=== PATIENT | male | born 1945 | race Caucasian/White ===

== ENCOUNTER 2018-02-14 10:26 | Observation (INO) ==
--- NOTE | 2018-02-14 10:29 | Emergency Department Note ---
Disposition Clinical Impression: COPD exacerbation Disposition: Admitted As Inpatient Condition: Good Referrals: Clovis Manley, OTOLOGIST [Primary Care Provider] - Time of Disposition: 13:06 SOB HPI - General Stated Complaint: difficulty breathing Time Seen by Provider: 02/14/18 10:29 Source: patient, EMS Mode of arrival: EMS Limitations: no limitations Nursing Notes Reviewed: Yes Vital Signs Reviewed: Yes - History of Present Illness 72-year-old white male presents emergency department via ambulance after being short of breath at home. He says that his breathing has become increasingly difficult over the last several days. He says that this morning he just could not take it. He says that his symptoms are made worse when he walks across the [place]. He also has had a productive cough. He says that he has had COPD in the past for a long time and he has also had congestive heart failure. He denies any fever or chills. He has had a continuous nebulizer treatment but continues from the ambulance. He says that this has seemed to help his breathing. He does not seem to be in any apparent distress presently, but he is short of breath. - Related Data Home Medications Medication Instructions Recorded Confirmed Allopurinol [Zyloprim] 100 mg PO BID 01/28/15 02/14/18 Amlodipine [Norvasc] 5 mg PO DAILY 01/28/15 02/14/18 CloNIDine HCl 0.1 mg PO BID 01/28/15 02/14/18 Gabapentin [Neurontin] 100 mg PO BID 01/28/15 02/14/18 Metformin [Glucophage] 500 mg PO BID 01/28/15 02/14/18 Metoprolol [Lopressor] 1 tab PO BID 01/28/15 02/14/18 Omeprazole [PriLOSEC] 20 mg PO BID 01/28/15 02/14/18 Albuterol Neb [Proventil Neb] 2.5 mg IH PRN PRN 04/27/15 02/14/18 Aspirin [Adult Low Dose Aspirin EC] 1 tab PO DAILY 04/27/15 02/14/18 Atorvastatin [Lipitor] 40 mg PO HS 10/14/15 02/14/18 Chlorthalidone 25 mg PO DAILY 10/14/15 02/14/18 Insulin DETEMIR [Levemir] 30 unit SQ HS 10/14/15 02/14/18 rOPINIRole [Requip] 1 mg PO HS 10/14/15 02/14/18 Linagliptin [Tradjenta] 5 mg PO DAILY 08/13/16 02/14/18 Rivaroxaban [Xarelto] 10 mg PO DAILY 08/13/16 02/14/18 Salmeterol Xinafoate [Serevent 50 mcg IH BID 08/13/16 02/14/18 Diskus] Lisinopril [Zestril] 5 mg PO DAILY 02/14/18 02/14/18 Allergies Allergy/AdvReac Type Severity Reaction Status Date / Time azithromycin Allergy Hives Verified 05/23/15 20:02 All systems ED: reviewed and negative except as stated. Constitutional: Denies: fever, chills, weakness, weight change Eyes: Denies: eye pain, eye discharge, vision change ENT ED: Denies: ear pain, throat pain, dental pain, hearing loss, epistaxis, congestion, dysphagia Cardiovascular: Reports: dyspnea on exertion. Denies: chest pain, palpitations, edema, syncope Respiratory: Reports: as per HPI, cough, dyspnea, wheezes, sputum production. Denies: hemoptysis Gastrointestinal: Denies: abdominal pain, nausea, vomiting, diarrhea, constipation, hematemesis, melena, hematochezia Genitourinary: Denies: urgency, dysuria, frequency, hematuria Musculoskeletal: Denies: back pain, neck pain, arthralgia, myalgia Integumentary: Denies: rash, abrasion, lesions Neurological: Denies: headache, weakness, numbness, paresthesias, confusion, abnormal gait, vertigo Psychiatric: Denies: anxiety, depression, suicidal thoughts, homicidal thoughts, auditory hallucinations, visual hallucinations Endocrine: Denies: fatigue Hematological/Lymphatic: Denies: easy bleeding, easy bruising Allergic/Immunologic: Denies: facial swelling, urticaria Past Medical History - Past Medical History Medical history: Reports: arthritis, atrial fibrillation, COPD, coronary artery disease, diabetes, GERD, hyperlipidemia, hypertension, myocardial infarction Surgical history: Reports: angioplasty/stent, appendectomy, cataract, herniorrhaphy Psychiatric history: Reports: no psych history - Social History Smoking Status: Former smoker Smokeless Tobacco Status: No Alcohol use: Reports: rarely Drug use: Reports: none Physical Exam - General Limitations: no limitations General appearance: alert, in no apparent distress - Head Head exam: atraumatic, normocephalic, normal inspection - Eye Eye exam: Present: normal appearance, PERRL, EOMI - ENT ENT exam: normal exam, normal oropharynx, mucous membranes moist - Neck Neck exam: Present: normal inspection, full ROM, trachea midline. Absent: tenderness, lymphadenopathy - Chest Chest inspection: Present: normal inspection, symmetric chest wall rise. Absent: tenderness - Respiratory Respiratory exam: Present: wheezes, accessory muscle use, other (Breath sounds are significantly decreased bilaterally, but equal. Scattered rhonchi through out, more prominent in the left lung base, mild expiratory wheezing. No Rales) - Cardiovascular Cardiovascular exam: Present: regular rate, normal rhythm, normal heart sounds - Abdominal Exam Abdominal exam: Present: soft, Non-Tender. Absent: tenderness, distention, guarding, rebound, rigidity, organomegaly, mass, pulsatile mass - Extremities Exam Extremities exam: Present: normal inspection, full ROM. Absent: tenderness, pedal edema - Back Exam Back exam: Present: normal inspection, full ROM. Absent: tenderness, CVA tenderness (R), CVA tenderness (L) - Neurological Exam Neurological exam: Present: alert, oriented X3, CN II-XII intact. Absent: motor sensory deficit - Psychiatric Psychiatric exam: Present: normal affect, normal mood - Skin Skin exam: Present: warm, dry, intact, normal color Course Course Narrative: The patient remained stable throughout his emergency department stay. Following his medications and breathing treatment had significant relief of his shortness of breath. He is feeling better at the time of disposition. Spoke with Dr. Miranda who is the hospitalist today at 1300 and the patient will be observed overnight in the hospital. Vital Signs Temperature 97.6 F 02/14/18 10:32 Pulse Rate 70 02/14/18 10:32 Respiratory Rate 20 02/14/18 10:32 Blood Pressure 133/70 02/14/18 10:32 O2 Sat by Pulse Oximetry 98 02/14/18 10:32 Temperature 97.6 F 02/14/18 10:32 Pulse Rate 66 02/14/18 12:47 Respiratory Rate 18 02/14/18 12:47 Blood Pressure 122/78 02/14/18 12:47 O2 Sat by Pulse Oximetry 94 02/14/18 12:47 Oxygen Delivery Oxygen Delivery Nasal Cannula Shortness of Breath/Dyspnea - Lab Data Lab results reviewed: Yes I reviewed the patient's lab results. Result diagrams: 02/14/18 11:05 02/14/18 11:05 Lab Results 02/14/18 02/14/18 02/14/18 Range/Units 11:05 11:05 11:05 WBC 11.0 (4.3-11.1) K/mcL RBC 4.90 (4.19-5.50) M/mcL Hgb 15.3 (12.9-16.9) g/dL Hct 47.8 (37.5-50.1) % MCV 97.6 (83.0-100.0) fL MCH 31.2 (28.0-33.3) pg MCHC 32.0 (31.6-35.5) g/dL RDW 16.0 H (11.5-14.5) % Plt Count 156 (140-400) K/mcL MPV 11.7 (9.4-12.4) fL Immature Gran % 0.7 (0-4) % Seg Neutrophils % 73.4 % Lymphocytes % 12.3 % Monocytes % 7.8 % Eosinophils % 5.1 % Basophils % 0.7 % Neutrophils # 8.0 (1.6-8.9) K/mcL Lymphocytes # 1.4 (0.6-4.6) K/mcL Monocytes # 0.9 (0.0-1.3) K/mcL Eosinophils # 0.6 (0.0-0.6) K/mcL Basophils # 0.1 (0.0-0.2) K/mcL PT 18.8 H (9.4-12.1) Seconds INR 1.7 ABG pH (7.32-7.45) pH Units ABG pCO2 (35-45) mmHg ABG pO2 (85-104) mmHg ABG HCO3 (21-27) mEq/L ABG Total CO2 (20-26) mEq/L ABG O2 Saturation (95-98) % ABG Base Excess (-2 to 3) mEq/L Sodium 135 L (136-145) mEq/L Potassium 4.7 (3.5-5.1) mEq/L Chloride 103 (98-107) mEq/L Carbon Dioxide 25 (23-29) mEq/L BUN 16 (8-23) mg/dL Creatinine 0.78 (0.70-1.30) mg/dL Est GFR ( Amer) > 60 (> 60) Est GFR (Non-Af Amer) > 60 (> 60) BUN/Creatinine Ratio 21 (6-26) Glucose 134 H (70-105) mg/dL Calculated Osmolality 283 (280-300) Lactic Acid (0.5-2.2) mmol/L Calcium 9.3 (8.6-10.3) mg/dL Total Bilirubin 0.9 (0.3-1.0) mg/dL AST 51 H (13-39) Units/L ALT 52 (7-52) Units/L Alkaline Phosphatase 106 H (34-104) Units/L Troponin I < 0.03 (< 0.04) ng/mL B-Natriuretic Peptide (Less than 100) pg/mL Serum Total Protein 7.0 (6.4-8.9) g/dL Albumin 4.1 (3.5-5.7) g/dL Globulin 2.9 (2.4-3.5) g/dL Albumin/Globulin Ratio 1.4 (1.1-2.2) 02/14/18 02/14/18 02/14/18 Range/Units 11:05 11:05 11:16 WBC (4.3-11.1) K/mcL RBC (4.19-5.50) M/mcL Hgb (12.9-16.9) g/dL Hct (37.5-50.1) % MCV (83.0-100.0) fL MCH (28.0-33.3) pg MCHC (31.6-35.5) g/dL RDW (11.5-14.5) % Plt Count (140-400) K/mcL MPV (9.4-12.4) fL Immature Gran % (0-4) % Seg Neutrophils % % Lymphocytes % % Monocytes % % Eosinophils % % Basophils % % Neutrophils # (1.6-8.9) K/mcL Lymphocytes # (0.6-4.6) K/mcL Monocytes # (0.0-1.3) K/mcL Eosinophils # (0.0-0.6) K/mcL Basophils # (0.0-0.2) K/mcL PT (9.4-12.1) Seconds INR ABG pH 7.37 (7.32-7.45) pH Units ABG pCO2 41 (35-45) mmHg ABG pO2 72 L (85-104) mmHg ABG HCO3 24 (21-27) mEq/L ABG Total CO2 25 (20-26) mEq/L ABG O2 Saturation 94 L (95-98) % ABG Base Excess -2 (-2 to 3) mEq/L Sodium (136-145) mEq/L Potassium (3.5-5.1) mEq/L Chloride (98-107) mEq/L Carbon Dioxide (23-29) mEq/L BUN (8-23) mg/dL Creatinine (0.70-1.30) mg/dL Est GFR ( Amer) (> 60) Est GFR (Non-Af Amer) (> 60) BUN/Creatinine Ratio (6-26) Glucose (70-105) mg/dL Calculated Osmolality (280-300) Lactic Acid 2.0 (0.5-2.2) mmol/L Calcium (8.6-10.3) mg/dL Total Bilirubin (0.3-1.0) mg/dL AST (13-39) Units/L ALT (7-52) Units/L Alkaline Phosphatase (34-104) Units/L Troponin I (< 0.04) ng/mL B-Natriuretic Peptide 234 H (Less than 100) pg/mL Serum Total Protein (6.4-8.9) g/dL Albumin (3.5-5.7) g/dL Globulin (2.4-3.5) g/dL Albumin/Globulin Ratio (1.1-2.2) - Radiology Data Radiology results reviewed: Yes I reviewed the patient's radiology results. One view chest: IMPRESSION: Stable chest demonstrating what appears to be chronic interstitial fibrotic changes. No acute abnormalities identified. D/ / Jose Mcnamara MD / Jose Mcnamara MD - EKG Data EKG attestation: Yes I reviewed and interpreted this EKG. EKG results narrative: Twelve-lead EKG showed a sinus rhythm, normal axis, rate 68, no acute ST elevation or depression appreciated.
[2018-02-14] MEDS ORDERED: methylPREDNISolone 125 MG/2 ML VIAL IVP ONE (10:37)
[2018-02-14] MEDS ORDERED: Furosemide 40 MG/4 ML VIAL IVP ONE (10:38)
[2018-02-14 11:12] LABS: Basophils # 0.1 K/mcL (0.0-0.2); Basophils % 0.7 %; Eosinophils # 0.6 K/mcL (0.0-0.6); Eosinophils % 5.1 %; Hematocrit 47.8 % (37.5-50.1); Hemoglobin 15.3 g/dL (12.9-16.9); Immature Granulocytes % 0.7 % (0-4); Lymphocytes # 1.4 K/mcL (0.6-4.6); Lymphocytes % 12.3 %; Mean Corpuscular Hemoglobin 31.2 pg (28.0-33.3); Mean Corpuscular Volume 97.6 fL (83.0-100.0); Mean Platelet Volume 11.7 fL (9.4-12.4); Monocytes # 0.9 K/mcL (0.0-1.3); Monocytes % 7.8 %; Platelet Count 156 K/mcL (140-400); Segmented Neutrophils % 73.4 %
[2018-02-14 11:14] LABS: INR 1.7; Prothrombin Time 18.8 Seconds (9.4-12.1)
[2018-02-14 11:17] LABS: ABG Base Excess -2 mEq/L (-2 to 3); ABG HCO3 24 mEq/L (21-27); ABG Oxygen Saturation 94 % (95-98); ABG PCO2 41 mmHg (35-45); ABG PH 7.37 pH Units (7.32-7.45); ABG PO2 72 mmHg (85-104); ABG TCO2 25 mEq/L (20-26)
[2018-02-14 11:27] LABS: Alanine Aminotransferase 52 Units/L (7-52); Albumin 4.1 g/dL (3.5-5.7); Albumin/Globulin Ratio 1.4 (1.1-2.2); Alkaline Phosphatase 106 Units/L (34-104); Aspartate Amino Transferase 51 Units/L (13-39); BUN/Creatinine Ratio 21 (6-26); Bilirubin,Total 0.9 mg/dL (0.3-1.0); Blood Urea Nitrogen 16 mg/dL (8-23); Calcium 9.3 mg/dL (8.6-10.3); Carbon Dioxide 25 mEq/L (23-29); Chloride 103 mEq/L (98-107); Globulin 2.9 g/dL (2.4-3.5); Glucose 134 mg/dL (70-105); Osmolality,Calculated 283 (280-300); Potassium 4.7 mEq/L (3.5-5.1); Sodium 135 mEq/L (136-145); Troponin I < 0.03 ng/mL (< 0.04); eGFR For Non-African Americans > 60 (> 60)
[2018-02-14] MEDS ORDERED: Acetaminophen 325 MG TABLET PO PRN (13:50)
[2018-02-14] MEDS ORDERED: Naloxone 0.4 MG/ML INJ IVP PRN (13:50)
[2018-02-14] MEDS ORDERED: Ibuprofen 400 MG TABLET PO PRN (13:50)
[2018-02-14] MEDS ORDERED: Ipratropium/Albuterol Neb 3 ML IH PRN (15:02)
[2018-02-14] MEDS ORDERED: Dextrose Gel 15 GM/37.5 ML TUBE PO PRN ×2 (15:03)
[2018-02-14] MEDS ORDERED: D5% in Water 1,000 ML IVC PRN (15:03)
[2018-02-14] MEDS ORDERED: *HR* Dextrose 50 % in Water (Syg) 50 ML SYRINGE IVP PRN (15:03)
[2018-02-14] MEDS: MethylPREDNISolone 40 MG/ML VIAL IVP SCH ×2 (17:09→23:34)
[2018-02-14] MEDS: Ipratropium/Albuterol Neb 3 ML IH SCH ×2 (17:11→21:57)
[2018-02-14] MEDS: Insulin LISPRO 300 UNITS/3 ML VIAL SQ SCH ×2 (17:11→21:55)
--- NOTE | 2018-02-14 18:18 | Internal Med History&Physical ---
Date of Encounter: 02/14/18 Time of Encounter: 17:30 Internal Medicine - H&P: HPI Chief complaint: sob Admitted From: Home History of present illness: Mr. Feliz is a 72 year old male who came to emergency department via ambulance from home after being more short of breath . He also had a dry cough for 3 days and increased sob with exertion. Denies chills or chest pain. He lives he says with son in law but has his own area. He says he has a small dog he loves. He is 13 yrs. He says his kids want him to live with them but he does not want to do so. He likes independence. He is on chronic 2 L [place] oxygen. He has hx of COPD for many years and hx of congestive heart failure. He responded well in ED to continuous nebulizer treatment and his hypoxia improved. He went to 94 % on 2 L NC. He has hx a fib but is currently in SR Assessment and Plans acute exacerbation of COPD will use NC oxygen 2 L will use duonebs Q 6 H and q 4 hr prn will use rocephin and zithoromax will check sputum culture and gram stain steroids Type 2 diabetes will monitor glucose cover with slide scale as needed continue tradjenta and metformin and long acting insulin as at home hx a fib will continue his home dose xarelto - Related Data Home Medications Medication Instructions Recorded Confirmed Allopurinol [Zyloprim] 100 mg PO BID 01/28/15 02/14/18 Amlodipine [Norvasc] 5 mg PO DAILY 01/28/15 02/14/18 CloNIDine HCl 0.1 mg PO BID 01/28/15 02/14/18 Gabapentin [Neurontin] 100 mg PO BID 01/28/15 02/14/18 Metformin [Glucophage] 500 mg PO BID 01/28/15 02/14/18 Metoprolol [Lopressor] 1 tab PO BID 01/28/15 02/14/18 Omeprazole [PriLOSEC] 20 mg PO BID 01/28/15 02/14/18 Albuterol Neb [Proventil Neb] 2.5 mg IH PRN PRN 04/27/15 02/14/18 Aspirin [Adult Low Dose Aspirin EC] 1 tab PO DAILY 04/27/15 02/14/18 Atorvastatin [Lipitor] 40 mg PO HS 10/14/15 02/14/18 Chlorthalidone 25 mg PO DAILY 10/14/15 02/14/18 Insulin DETEMIR [Levemir] 30 unit SQ HS 10/14/15 02/14/18 rOPINIRole [Requip] 1 mg PO HS 10/14/15 02/14/18 Linagliptin [Tradjenta] 5 mg PO DAILY 08/13/16 02/14/18 Rivaroxaban [Xarelto] 10 mg PO DAILY 08/13/16 02/14/18 Salmeterol Xinafoate [Serevent 50 mcg IH BID 08/13/16 02/14/18 Diskus] Lisinopril [Zestril] 5 mg PO DAILY 02/14/18 02/14/18 Allergies Allergy/AdvReac Type Severity Reaction Status Date / Time azithromycin Allergy Hives Verified 05/23/15 20:02 All systems reviewed and negative except as stated. Past Medical History - Past Medical History Medical history: Reports: arthritis, atrial fibrillation, COPD, coronary artery disease, diabetes, GERD, hyperlipidemia, hypertension, myocardial infarction Surgical history: Reports: angioplasty/stent, appendectomy, cataract, herniorrhaphy Psychiatric history: Reports: no psych history - Social History Smoking Status: Former smoker not smoker now Smokeless Tobacco Status: No Alcohol use: Reports: rarely Drug use: Reports: none Physical Exam - General General appearance: alert elderly WM in no apparent distress - Eye Eye exam: PERRL, EOMI - ENT ENT exam: normal oropharynx, mucous membranes moist - Neck Neck exam: Present: normal inspection, full ROM, trachea midline. Absent: tenderness, lymphadenopathy - Respiratory Respiratory exam: Present: wheezes, accessory muscle use, Scattered rhonchi . No Rales) - Cardiovascular Cardiovascular exam: Present: regular rate, normal rhythm, normal heart sounds - Abdominal Exam Abdominal exam: Present: soft, Non-Tender. Absent: tenderness, distention, guarding, rebound, rigidity, organomegaly, mass, pulsatile mass - Extremities Exam Extremities exam: Present: normal inspection, no significant pedal edema - Neurological Exam Neurological exam: Present: alert, oriented X3, CN II-XII intact. - Skin Skin exam: Present: warm, thin and dry, intact, normal color Past Med Surg Social Fam HX - Past Medical History Medical history: arthritis, atrial fibrillation, COPD, coronary artery disease, diabetes, GERD, hyperlipidemia, hypertension, myocardial infarction Additional medical history: unsure if has aneurysm-they checked it and said it wasn't bad enough to do anything with yet. left pedals pulses weak Psychiatric history: no psych history - Past Surgical History Surgical History: angioplasty/stent, appendectomy, cataract, herniorrhaphy Additional surgical history: hernia repair x 2 - Social History Smoking Status: Former smoker Smokeless Tobacco Status: No Alcohol use: rarely Drug use: none - Family History Father Adopted: No Family Member Ethnicity: Non- Living Status: Hx Family Cardiac Disorders: Yes Hx Family Respiratory Disorders: No Hx Family Cancer: No Hx Family GI Disorders: No Hx Family Endocrine Disorder: Yes Hx Family Neuromuscular Disorders: No Hx Family Neurologic Disorders: No Hx Family HEENT Disorders: No Hx Family Autoimmune Disorders: No Mother Living Status: Hx Family Cancer: Yes Brother Living Status: Hx Family Cardiac Disorders: Yes Internal Medicine - H&P: Meds Allopurinol [Zyloprim] 100 mg PO BID 01/28/15 [History] Amlodipine [Norvasc] 5 mg PO DAILY 01/28/15 [History] CloNIDine HCl 0.1 mg PO BID 01/28/15 [History] Gabapentin [Neurontin] 100 mg PO BID 01/28/15 [History] Metformin [Glucophage] 500 mg PO BID 01/28/15 [History] Metoprolol [Lopressor] 1 tab PO BID 01/28/15 [History] Omeprazole [PriLOSEC] 20 mg PO BID 01/28/15 [History] Albuterol Neb [Proventil Neb] 2.5 mg IH PRN PRN 04/27/15 [History] Aspirin [Adult Low Dose Aspirin EC] 1 tab PO DAILY 04/27/15 [History] Atorvastatin [Lipitor] 40 mg PO HS 10/14/15 [History] Chlorthalidone 25 mg PO DAILY 10/14/15 [History] Insulin DETEMIR [Levemir] 30 unit SQ HS 10/14/15 [History] rOPINIRole [Requip] 1 mg PO HS 10/14/15 [History] Linagliptin [Tradjenta] 5 mg PO DAILY 08/13/16 [History] Rivaroxaban [Xarelto] 10 mg PO DAILY 08/13/16 [History] Salmeterol Xinafoate [Serevent Diskus] 50 mcg IH BID 08/13/16 [History] Lisinopril [Zestril] 5 mg PO DAILY 02/14/18 [History] 3 Allergy/AdvReac Type Severity Reaction Status Date / Time azithromycin Allergy Hives Verified 05/23/15 20:02 All Systems PM: A 10-system review of systems was performed and is negative for pertinent findings except as documented above in the HPI. - Constitutional Vitals: Temp Pulse Resp BP Pulse Ox 97.6 F 87 13 127/66 91 02/14/18 16:46 02/14/18 16:46 02/14/18 16:46 02/14/18 16:46 02/14/18 16:46 Internal Med - H&P Results - Labs CBC & Chem 7: 02/14/18 11:05 02/14/18 11:05 Labs: Short CBC 02/14/18 Range/Units 11:05 WBC 11.0 (4.3-11.1) K/mcL Hgb 15.3 (12.9-16.9) g/dL Hct 47.8 (37.5-50.1) % Plt Count 156 (140-400) K/mcL Neutrophils # 8.0 (1.6-8.9) K/mcL BMP 02/14/18 11:05 Sodium 135 L Potassium 4.7 Chloride 103 Carbon Dioxide 25 BUN 16 Creatinine 0.78 Glucose 134 H Calcium 9.3 Cardiac Enzymes 02/14/18 Range/Units 11:05 Troponin I < 0.03 (< 0.04) ng/mL Liver Function 02/14/18 Range/Units 11:05 Total Bilirubin 0.9 (0.3-1.0) mg/dL AST 51 H (13-39) Units/L ALT 52 (7-52) Units/L Alkaline Phosphatase 106 H (34-104) Units/L Albumin 4.1 (3.5-5.7) g/dL - ABG Interpretation ABG results: 02/14/18 11:16 ABG pH 7.37 ABG pCO2 41 ABG pO2 72 L ABG HCO3 24 ABG Total CO2 25 ABG O2 Saturation 94 L ABG Base Excess -2 - Impressions ITS Impressions Chest X-Ray 02/14/18 10:37 IMPRESSION: Stable chest demonstrating what appears to be chronic interstitial fibrotic changes. No acute abnormalities identified. D/ / Jose Mcnamara MD / Jose Mcnamara MD Interpreting Provider: Jose Mcnamara MD
[2018-02-14] MEDS: *HR* Metformin 500 MG TABLET PO SCH (21:51)
[2018-02-14] MEDS: cloNIDine HCl 0.1 MG TABLET PO SCH (21:51)
[2018-02-14] MEDS: Gabapentin 100 MG CAPSULE PO SCH (21:51)
[2018-02-14] MEDS: rOPINIRole 1 MG TABLET PO SCH (21:51)
[2018-02-14] MEDS: Insulin DETEMIR 100 UNIT/ML X5UNITS SQ SCH (21:56)
[2018-02-14] MEDS: Albuterol 2.5 MG/3 ML NEBULIZER IH SCH (21:57)
[2018-02-15] MEDS: Ipratropium/Albuterol Neb 3 ML IH SCH ×4 (04:07→21:37)
[2018-02-15] MEDS: MethylPREDNISolone 40 MG/ML VIAL IVP SCH ×2 (05:00→12:27)
[2018-02-15] MEDS: *HR* Metformin 500 MG TABLET PO SCH ×2 (08:48→20:03)
[2018-02-15] MEDS: *HR* Rivaroxaban 10 MG TABLET PO SCH (08:48)
[2018-02-15] MEDS: Gabapentin 100 MG CAPSULE PO SCH ×2 (08:48→19:53)
[2018-02-15] MEDS: Aspirin Enteric Coated 81 MG Tablet PO SCH (08:48)
[2018-02-15] MEDS: cloNIDine HCl 0.1 MG TABLET PO SCH ×2 (08:48→19:53)
[2018-02-15] MEDS: amLODIPine 5 MG TABLET PO SCH (08:48)
[2018-02-15] MEDS: (Linagliptin [Tradjenta] 5 MG) PO SCH (08:49)
[2018-02-15] MEDS: Insulin LISPRO 300 UNITS/3 ML VIAL SQ SCH ×4 (08:50→20:04)
[2018-02-15] MEDS: Albuterol 2.5 MG/3 ML NEBULIZER IH SCH ×2 (12:27→21:36)
--- NOTE | 2018-02-15 13:18 | Internal Med Progress Note ---
Date of Encounter: 02/15/18 Time of Encounter: 01:15 - Subjective Interval history: Chief complaint: sob Admitted From: Home Interval history Mr. Feliz is a 72 year old male who came to emergency department via ambulance from home after being more short of breath . He also had a dry cough for 3 days and increased sob with exertion. Denies chills or chest pain. He lives he says with son in law but has his own area. He says he has a small dog he loves. He is 15 yrs. He says his kids want him to live with them but he does not want to do so. He likes independence. He is on chronic 2 L [place] oxygen. He has hx of COPD for many years and hx of congestive heart failure. His xray in ED did not show failure. AT home he is chronic on 2 L NC. He is on IV antibiotics for bronchitis. His flu was neg he states he feels he has more productive cough now. He has hx a fib but is currently in SR no chest pain Assessment and Plans (1) acute exacerbation of COPD continue NC oxygen 2 L will use duonebs Q 6 H and q 4 hr prn continue rocephin and zithoromax will check sputum culture and gram stain steroids - has been on IV will change tomorrow to PO prednisone check chest xray today add tessalon for cough (2) Type 2 diabetes pt is eating well continue monitor glucose cover with slide scale as needed continue tradjenta and metformin and long acting insulin as at home (3) hx a fib will continue his home dose xarelto ok to dc telemetry as he has been in stable sr check labs - Related Data Home Medications Medication Instructions Recorded Confirmed Allopurinol [Zyloprim] 100 mg PO BID 01/28/15 02/14/18 Amlodipine [Norvasc] 5 mg PO DAILY 01/28/15 02/14/18 CloNIDine HCl 0.1 mg PO BID 01/28/15 02/14/18 Gabapentin [Neurontin] 100 mg PO BID 01/28/15 02/14/18 Metformin [Glucophage] 500 mg PO BID 01/28/15 02/14/18 Metoprolol [Lopressor] 1 tab PO BID 01/28/15 02/14/18 Omeprazole [PriLOSEC] 20 mg PO BID 01/28/15 02/14/18 Albuterol Neb [Proventil Neb] 2.5 mg IH PRN PRN 04/27/15 02/14/18 Aspirin [Adult Low Dose Aspirin EC] 1 tab PO DAILY 04/27/15 02/14/18 Atorvastatin [Lipitor] 40 mg PO HS 10/14/15 02/14/18 Chlorthalidone 25 mg PO DAILY 10/14/15 02/14/18 Insulin DETEMIR [Levemir] 30 unit SQ HS 10/14/15 02/14/18 rOPINIRole [Requip] 1 mg PO HS 10/14/15 02/14/18 Linagliptin [Tradjenta] 5 mg PO DAILY 08/13/16 02/14/18 Rivaroxaban [Xarelto] 10 mg PO DAILY 08/13/16 02/14/18 Salmeterol Xinafoate [Serevent 50 mcg IH BID 08/13/16 02/14/18 Diskus] Lisinopril [Zestril] 5 mg PO DAILY 02/14/18 02/14/18 Allergies Allergy/AdvReac Type Severity Reaction Status Date / Time azithromycin Allergy Hives Verified 05/23/15 20:02 Physical Exam - General General appearance: alert elderly WM [place] in no apparent distress - Eye Eye exam: PERRL, EOMI - Neck Neck exam: Present: normal inspection, no bruit, trachea midline. - Respiratory Respiratory exam: Present: musical wheezes, some accessory muscle use, No R ales - Cardiovascular Cardiovascular exam: Present: regular rate, normal rhythm, normal heart sounds - Abdominal Exam Abdominal exam: Present: soft, Non-Tender. BS + - Extremities Exam Extremities exam: Present: normal inspection, no significant pedal edema - Neurological Exam Neurological exam: Present: alert, oriented X3, CN II-XII intact. - Constitutional Vitals: Temp Pulse Resp BP Pulse Ox 97.8 F 82 16 107/55 93 02/15/18 12:22 02/15/18 12:22 02/15/18 12:22 02/15/18 12:22 02/15/18 12:22 Internal Medicine: Result - Labs CBC & Chem 7: 02/14/18 11:05 02/14/18 11:05 - ABG Interpretation ABG results: ABG ABG pH 7.37 pH Units (7.32-7.45) 02/14/18 11:16 ABG pCO2 41 mmHg (35-45) 02/14/18 11:16 ABG pO2 72 mmHg (85-104) L 02/14/18 11:16 ABG O2 Saturation 94 % (95-98) L 02/14/18 11:16 PT/INR, D-dimer PT 18.8 Seconds (9.4-12.1) H 02/14/18 11:05 Consult Discharge Plan - Plan
[2018-02-15] MEDS: Benzonatate 100 MG CAPSULE PO SCH ×2 (15:42→19:54)
[2018-02-15] MEDS: rOPINIRole 1 MG TABLET PO SCH (19:53)
[2018-02-15] MEDS: Insulin DETEMIR 100 UNIT/ML X5UNITS SQ SCH (20:05)
[2018-02-16 05:20] LABS: Hematocrit 39.3 % (37.5-50.1); Hemoglobin 12.9 g/dL (12.9-16.9); Mean Corpuscular HGB Conc 32.8 g/dL (31.6-35.5); Mean Corpuscular Hemoglobin 30.9 pg (28.0-33.3); Mean Corpuscular Volume 94.2 fL (83.0-100.0); Mean Platelet Volume 11.5 fL (9.4-12.4); Platelet Count 156 K/mcL (140-400); Red Blood Count 4.17 M/mcL (4.19-5.50); Red Cell Distribution Width 15.2 % (11.5-14.5)
[2018-02-16 05:25] LABS: INR 1.1; Prothrombin Time 12.6 Seconds (9.4-12.1)
[2018-02-16] MEDS: Ipratropium/Albuterol Neb 3 ML IH SCH ×2 (05:25→09:49)
[2018-02-16 05:40] LABS: BUN/Creatinine Ratio 32 (6-26); Blood Urea Nitrogen 26 mg/dL (8-23); Calcium 8.7 mg/dL (8.6-10.3); Carbon Dioxide 27 mEq/L (23-29); Chloride 99 mEq/L (98-107); Glucose 302 mg/dL (70-105); Osmolality,Calculated 290 (280-300); Potassium 4.2 mEq/L (3.5-5.1); Sodium 132 mEq/L (136-145); eGFR For Non-African Americans > 60 (> 60)
[2018-02-16 07:42] VITALS: BP 122/64
[2018-02-16] MEDS: (Linagliptin [Tradjenta] 5 MG) PO SCH (08:26)
[2018-02-16] MEDS: amLODIPine 5 MG TABLET PO SCH (08:26)
[2018-02-16] MEDS: *HR* Rivaroxaban 10 MG TABLET PO SCH (08:27)
[2018-02-16] MEDS: *HR* Metformin 500 MG TABLET PO SCH (08:27)
[2018-02-16] MEDS: Gabapentin 100 MG CAPSULE PO SCH (08:27)
[2018-02-16] MEDS: cloNIDine HCl 0.1 MG TABLET PO SCH (08:27)
[2018-02-16] MEDS: Aspirin Enteric Coated 81 MG Tablet PO SCH (08:27)
[2018-02-16] MEDS: Benzonatate 100 MG CAPSULE PO SCH (08:28)
[2018-02-16] MEDS: Insulin LISPRO 300 UNITS/3 ML VIAL SQ SCH ×2 (08:28→12:13)
[2018-02-16] MEDS ORDERED: predniSONE 20 MG TABLET PO SCH (09:00)
[2018-02-16] MEDS ORDERED: Budesonide/Formoterol 160/4.5 1 PUFF INH IH SCH (10:00)
[2018-02-16] MEDS: Albuterol 2.5 MG/3 ML NEBULIZER IH SCH (12:03)
--- NOTE | 2018-02-16 14:15 | Discharge Summary ---
- NOTES TO OUTPATIENT PROVIDER Notes to Outpatient Provider: Follow up with PCP for COPD exacerbation. Currently on steroid taper Orders not resulted at time of discharge: Pending orders 02/14/18 17:36 Culture,Sputum with Gram Stain [] Routine Date of Encounter: 02/16/18 Time of Encounter: 14:11 - Discharge Diagnosis (1) COPD exacerbation Priority: Primary Status: Acute Comments: Improving. Continue PO prednisone. Follow up with PCP within one week. Continue oxygen 2 L per nasal cannula. Continue inhaled meds. Has nebulizer at home. (2) Diabetes type 2, controlled Priority: Secondary Status: Acute Comments: Continue current medications. Controlled at this time. Follow up with PCP. Monitor fingerstick blood sugars. 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 Continue xaralto. Follow up with PCP as scheduled. Hospital course: Mr. Feliz is a 72 year old male discharging to home after admitting to the hospital observation when presenting to the emergency room with increased shortness of breath. Past medical history includes COPD, diabetes and a fib. Patient states that breathing is at baseline. Wears oxygen at 2 L per nasal cannula at home. O2 sats remaining greater than 94% with oxygen at 2 L. Denies fever, chills, nausea, vomiting or diarrhea. Continue denies shortness of breath or chest pain. Discussed to follow up with PCP within one week. Will continue prednisone 20 mg 2 tablets by mouth daily for 5 days. Discharge discussed with: patient, family, nurse - Time Spent with Patient Total time spent providing and/or coordinating discharge services: Less than 30 minutes - Discharge Medications Home Medications: Allopurinol [Zyloprim] 100 mg PO BID 01/28/15 [History] Amlodipine [Norvasc] 5 mg PO DAILY 01/28/15 [History] CloNIDine HCl 0.1 mg PO BID 01/28/15 [History] Gabapentin [Neurontin] 100 mg PO BID 01/28/15 [History] Metformin [Glucophage] 500 mg PO BID 01/28/15 [History] Metoprolol [Lopressor] 1 tab PO BID 01/28/15 [History] Omeprazole [PriLOSEC] 20 mg PO BID 01/28/15 [History] Albuterol Neb [Proventil Neb] 2.5 mg IH PRN PRN 04/27/15 [History] Aspirin [Adult Low Dose Aspirin EC] 1 tab PO DAILY 04/27/15 [History] Atorvastatin [Lipitor] 40 mg PO HS 10/14/15 [History] Chlorthalidone 25 mg PO DAILY 10/14/15 [History] Insulin DETEMIR [Levemir] 30 unit SQ HS 10/14/15 [History] rOPINIRole [Requip] 1 mg PO HS 10/14/15 [History] Linagliptin [Tradjenta] 5 mg PO DAILY 08/13/16 [History] Rivaroxaban [Xarelto] 10 mg PO DAILY 08/13/16 [History] Salmeterol Xinafoate [Serevent Diskus] 50 mcg IH BID 08/13/16 [History] Lisinopril [Zestril] 5 mg PO DAILY 02/14/18 [History] Acetaminophen [Tylenol] 650 mg PO Q6HR PRN tablet 02/16/18 [Rx] Ibuprofen [Motrin] 400 mg PO Q6HR PRN tablet 02/16/18 [Rx] predniSONE [PredniSONE] 30 mg PO DAILY tablet 02/16/18 [Rx] Allergies/Adverse Reactions: Allergy/AdvReac Type Severity Reaction Status Date / Time azithromycin Allergy Hives Verified 05/23/15 20:02 Date of admission: 02/14/18 13:12 Primary care physician: Clovis Manley CNP Discharging clinician: Aiden Cooper Anticipated date of discharge: 02/16/18 - Constitutional Vitals: Temp Pulse Resp BP Pulse Ox 98.3 F 77 19 122/64 94 02/16/18 07:42 02/16/18 07:42 02/16/18 09:52 02/16/18 07:42 02/16/18 09:52 General appearance: Present: cooperative, A&O X 3, pleasant, no acute distress, answers questions appropriately - Head Head exam: Present: atraumatic, normocephalic - Eye Eye exam: Present: PERRL, conjuntiva pink, sclera anicteric Pupils: Present: PERRL - Neck Neck exam general surgery: Present: supple, trachea midline. Absent: lymphadenopathy - Respiratory Respiratory exam: Present: CTAB. Absent: accessory muscle use, rales, rhonchi, wheezes - Cardiovascular Cardiovascular exam: Present: RRR, +S1, +S2. Absent: diastolic murmur, gallop, rubs, systolic murmur - GI/Abdominal GI/Abdominal exam: Present: normal bowel sounds, soft, no peritoneal signs. Absent: distended, tenderness - Extremities Exam Extremities exam: Present: warm, radial pulses palpable and symmetrical. Absent: calf tenderness, cyanotic, pedal edema - Neurological Exam Neurological exam: Present: CN II-XII intact, oriented X3, no focal deficits. Absent: pronater drift, facial droop, speech deficit - Skin Skin exam: Present: dry, intact - Patient Status Disposition: Home, Self-Care Condition: Good Functional capacity at discharge: uses cane/walker Overall status at discharge: patient is progressing back to baseline - Discharge Instructions Follow Up With: Clovis Manley CAFE COOK [Primary Care Provider] - Forms: ED Satisfaction Letter - Diet and Activity Activity: increase activity as tolerated Diet: diabetic diet
--- NOTE | 2018-02-17 19:52 | Electrocardiograph Report ---
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
== END 2018-02-16 15:26 | disposition home or self-care (01) ==
LOC: EMEROOGRE 10:26 → INPGRE 10:26
PROVIDERS: ADMIT Internal Medicine; ATTEND Internal Medicine

== ENCOUNTER 2018-04-17 08:17 | Inpatient (IN) ==
[2018-04-17] MEDS ORDERED: Levofloxacin 750 MG/150 ML 750 MG/150 ML BAG IVPB ONE (08:18)
[2018-04-17] MEDS ORDERED: Ipratropium/Albuterol Neb 3 ML IH ONE ×3 (08:18→11:04)
[2018-04-17] MEDS ORDERED: 0.9 % Sodium Chloride 1,000 ML IVC ONE (08:18)
[2018-04-17] MEDS ORDERED: cefTRIAXone 1,000 MG in Water for inj. (sterile) 20 ML 10 ML IVP ONE (08:18)
[2018-04-17] MEDS ORDERED: Albuterol 2.5 MG/3 ML NEBULIZER IH ONE ×2 (08:18→11:04)
--- NOTE | 2018-04-17 08:18 | Emergency Department Note ---
Disposition Clinical Impression: Acute exacerbation of chronic obstructive airways disease Disposition: Admitted As Inpatient Time of Disposition: 10:48 SOB HPI - General Stated Complaint: KALI Time Seen by Provider: 04/17/18 08:18 Source: patient, EMS Mode of arrival: EMS Limitations: no limitations Nursing Notes Reviewed: Yes Vital Signs Reviewed: Yes - History of Present Illness 72-year-old woman who presents by EMS today for altered mental status and shortness of breath. His [id number] and son live with him and she found him this morning after he got out of the shower not responsive. She states she gave him [id number] and that he started to breathe again. EMS got there found him to be confused but awake and alert to answer questions but he did not always know where he was. They gave him a DuoNeb and Solu-Medrol en route christine radha him on oxygen, masses sats were low and he is complaining of shortness of breath. Patient states he has not had any cough or wheezing. He states he has not been on recent antibiotics. He states he feels very cold. He states he has no idea what happened this morning. Pt Subjective Complaint: shortness of breath - Related Data Home Medications Medication Instructions Recorded Confirmed Allopurinol [Zyloprim] 100 mg PO BID 01/28/15 04/17/18 Amlodipine [Norvasc] 5 mg PO DAILY 01/28/15 04/17/18 CloNIDine HCl 0.1 mg PO DAILY 01/28/15 04/17/18 Metformin [Glucophage] 500 mg PO BID 01/28/15 04/17/18 Metoprolol [Lopressor] 1 tab PO DAILY 01/28/15 04/17/18 Omeprazole [PriLOSEC] 20 mg PO BID 01/28/15 04/17/18 Albuterol Neb [Proventil Neb] 2.5 mg IH PRN PRN 04/27/15 04/09/18 Aspirin [Adult Low Dose Aspirin EC] 1 tab PO DAILY 04/27/15 04/17/18 Atorvastatin [Lipitor] 40 mg PO HS 10/14/15 04/17/18 Chlorthalidone 25 mg PO DAILY 10/14/15 04/17/18 Insulin DETEMIR [Levemir] 30 unit SQ HS 10/14/15 04/17/18 rOPINIRole [Requip] 1 mg PO HS 10/14/15 04/17/18 Linagliptin [Tradjenta] 5 mg PO DAILY 08/13/16 04/17/18 Rivaroxaban [Xarelto] 10 mg PO DAILY 08/13/16 04/17/18 Salmeterol Xinafoate [Serevent 50 mcg IH BID 08/13/16 04/17/18 Diskus] Lisinopril [Zestril] 5 mg PO DAILY 02/14/18 04/17/18 Ferrous Sulfate [Iron] 325 mg PO DAILY 04/09/18 04/17/18 Loratadine [Allergy Relief] 10 mg PO DAILY 04/09/18 04/17/18 Sotalol [Betapace] 80 mg PO Q12HR 04/09/18 04/17/18 Allergies Allergy/AdvReac Type Severity Reaction Status Date / Time azithromycin Allergy Hives Verified 05/23/15 20:02 Review of Systems: Review of systems difficult to obtain secondary to patient's condition Chart generated with voice recognition software Nursing notes reviewed Old records reviewed Past Medical History - Past Medical History Attestation: Yes The following information was validated with the patient. Source: old records reviewed, obtained from family, nursing notes reviewed Medical history: Reports: aortic aneurysm, arthritis, atrial fibrillation, COPD, coronary artery disease, diabetes, GERD, hyperlipidemia, hypertension, myoca rdial infarction Surgical history: Reports: angioplasty/stent, appendectomy, cataract, herniorrhaphy Psychiatric history: Reports: no psych history - Social History Smoking Status: Former smoker Smokeless Tobacco Status: No Alcohol use: Reports: rarely Drug use: Reports: none Physical Exam General: Mild distress Head: normocephalic, atraumatic Eyes: EOMI, PERRLA mouth: Dry mucous membranes Neck: NO CLA, Supple Chest wall: normal rise, no crepitus, no deformity noted Lungs: Diminished coarse lung sounds bilaterally Heart: Tachycardic regular Abd: soft, nontender, BS normal : deferred MSK: strength equal in all four extremities Ext: moves all four extremities, no obvious deformities Skin: cap refill normal, warm, dry neuro : CN2-12 grossly intact, oriented to person Psych: normal affect, not anxious Course - Reevaluation(s) Reevaluation #1: [facility] care patient. Patient is resting more comfortably at this time patient on 4 L nasal cannula satting 9495%. Auscultation of breath sounds reveal clear breath sounds no wheezing or rales are noted at this time. Patient is talking in full sentences. I reviewed labs and CAT scans and x-rays. Have discussed with Dr. Miranda patient will be admitted here for further evaluation and m anagement. Patient is in agreement with plan. I have also discussed and confirmed Patient his DNR/DNI status. Time: 10:46 Vital Signs Temperature 98.1 F 04/17/18 08:21 Pulse Rate 77 04/17/18 08:21 Respiratory Rate 22 04/17/18 08:21 Blood Pressure 128/86 04/17/18 08:21 O2 Sat by Pulse Oximetry 87 04/17/18 08:21 Temperature 98.1 F 04/17/18 08:21 Pulse Rate 79 04/17/18 09:52 Respiratory Rate 20 04/17/18 10:53 Blood Pressure 121/78 04/17/18 10:53 O2 Sat by Pulse Oximetry 95 04/17/18 09:52 Oxygen Delivery Oxygen Delivery Nasal Cannula Shortness of Breath/Dyspnea - MDM Narrative Medical decision making narrative: Patient has a living will and is a DNR. - Differential Diagnosis Likely: acute exacerbation of chronic obstructive airways disease. Unlikely: pneumonia - Lab Data Lab results reviewed: Yes I reviewed the patient's lab results. Lab results narrative: Patient's labs reviewed. Patient has mild hyperglycemia. Otherwise labs are within normal limits. Results discussed with patient. Result diagrams: 04/17/18 08:30 04/17/18 08:30 Lab Results 04/17/18 04/17/18 04/17/18 Range/Units 08:18 08:30 08:30 WBC 8.2 (4.3-11.1) K/mcL RBC 4.46 (4.19-5.50) M/mcL Hgb 13.7 (12.9-16.9) g/dL Hct 42.5 (37.5-50.1) % MCV 95.3 (83.0-100.0) fL MCH 30.7 (28.0-33.3) pg MCHC 32.2 (31.6-35.5) g/dL RDW 15.9 H (11.5-14.5) % Plt Count 168 (140-400) K/mcL MPV 11.8 (9.4-12.4) fL Immature Gran % 0.6 (0-4) % Seg Neutrophils % 68.3 % Lymphocytes % 14.2 % Monocytes % 8.8 % Eosinophils % 7.1 % Basophils % 1.0 % Neutrophils # 5.6 (1.6-8.9) K/mcL Lymphocytes # 1.2 (0.6-4.6) K/mcL Monocytes # 0.7 (0.0-1.3) K/mcL Eosinophils # 0.6 (0.0-0.6) K/mcL Basophils # 0.1 (0.0-0.2) K/mcL PT 17.3 H (9.4-12.1) Seconds INR 1.5 APTT 38.0 H (26.0-36.0) Seconds ABG pH (7.32-7.45) pH Units ABG pCO2 (35-45) mmHg ABG pO2 (85-104) mmHg ABG HCO3 (21-27) mEq/L ABG Total CO2 (20-26) mEq/L ABG O2 Saturation (95-98) % ABG Base Excess (-2 to 3) mEq/L Sodium (136-145) mEq/L Potassium (3.5-5.1) mEq/L Chloride (98-107) mEq/L Carbon Dioxide (23-29) mEq/L BUN (8-23) mg/dL Creatinine (0.70-1.30) mg/dL Est GFR ( Amer) (> 60) Est GFR (Non-Af Amer) (> 60) BUN/Creatinine Ratio (6-26) Glucose (70-105) mg/dL Calculated Osmolality (280-300) Lactic Acid (0.5-2.2) mmol/L Calcium (8.6-10.3) mg/dL Phosphorus (2.7-4.5) mg/dL Magnesium (1.6-2.6) mg/dL Total Bilirubin (0.3-1.0) mg/dL Direct Bilirubin (0.0-0.2) mg/dL Indirect Bilirubin (0.0-1.2) mg/dL AST (13-39) Units/L ALT (7-52) Units/L Alkaline Phosphatase (34-104) Units/L Troponin I (< 0.04) ng/mL B-Natriuretic Peptide (Less than 100) pg/mL Serum Total Protein (6.4-8.9) g/dL Albumin (3.5-5.7) g/dL Globulin (2.4-3.5) g/dL Albumin/Globulin Ratio (1.1-2.2) Urine Color Yellow (Yellow) Urine Clarity Clear (Clear) Urine pH 5.5 (5.0-8.0) pH Units Ur Specific [place] 1.020 (1.010-1.025) Urine Protein 30 H (Neg-Trace) mg/dL Urine Glucose (UA) Normal (Normal) mg/dL Urine Ketones Negative (Negative) mg/dL Urine Blood Negative (Negative) Urine Nitrite Negative (Negative) Urine Bilirubin Negative (Negative) Urine Urobilinogen Normal (Normal) mg/dL Ur Leukocyte Esterase Negative (Negative) Ur Squamous Epith Cells Few (None-Few) per lpf Ur Culture Indicated? NO (NO) 04/17/18 04/17/18 04/17/18 Range/Units 08:30 08:30 08:30 WBC (4.3-11.1) K/mcL RBC (4.19-5.50) M/mcL Hgb (12.9-16.9) g/dL Hct (37.5-50.1) % MCV (83.0-100.0) fL MCH (28.0-33.3) pg MCHC (31.6-35.5) g/dL RDW (11.5-14.5) % Plt Count (140-400) K/mcL MPV (9.4-12.4) fL Immature Gran % (0-4) % Seg Neutrophils % % Lymphocytes % % Monocytes % % Eosinophils % % Basophils % % Neutrophils # (1.6-8.9) K/mcL Lymphocytes # (0.6-4.6) K/mcL Monocytes # (0.0-1.3) K/mcL Eosinophils # (0.0-0.6) K/mcL Basophils # (0.0-0.2) K/mcL PT (9.4-12.1) Seconds INR APTT (26.0-36.0) Seconds ABG pH (7.32-7.45) pH Units ABG pCO2 (35-45) mmHg ABG pO2 (85-104) mmHg ABG HCO3 (21-27) mEq/L ABG Total CO2 (20-26) mEq/L ABG O2 Saturation (95-98) % ABG Base Excess (-2 to 3) mEq/L Sodium 138 (136-145) mEq/L Potassium 4.9 (3.5-5.1) mEq/L Chloride 106 (98-107) mEq/L Carbon Dioxide 27 (23-29) mEq/L BUN 18 (8-23) mg/dL Creatinine 0.79 (0.70-1.30) mg/dL Est GFR ( Amer) > 60 (> 60) Est GFR (Non-Af Amer) > 60 (> 60) BUN/Creatinine Ratio 23 (6-26) Glucose 208 H (70-105) mg/dL Calculated Osmolality 294 (280-300) Lactic Acid 1.1 (0.5-2.2) mmol/L Calcium 8.7 (8.6-10.3) mg/dL Phosphorus 3.8 (2.7-4.5) mg/dL Magnesium 1.3 L (1.6-2.6) mg/dL Total Bilirubin 0.7 (0.3-1.0) mg/dL Direct Bilirubin 0.2 (0.0-0.2) mg/dL Indirect Bilirubin 0.5 (0.0-1.2) mg/dL AST 16 (13-39) Units/L ALT 20 (7-52) Units/L Alkaline Phosphatase 83 (34-104) Units/L Troponin I < 0.03 (< 0.04) ng/mL B-Natriuretic Peptide 289 H (Less than 100) pg/mL Serum Total Protein 6.1 L (6.4-8.9) g/dL Albumin 3.7 (3.5-5.7) g/dL Globulin 2.4 (2.4-3.5) g/dL Albumin/Globulin Ratio 1.5 (1.1-2.2) Urine Color (Yellow) Urine Clarity (Clear) Urine pH (5.0-8.0) pH Units Ur Specific [place] (1.010-1.025) Urine Protein (Neg-Trace) mg/dL Urine Glucose (UA) (Normal) mg/dL Urine Ketones (Negative) mg/dL Urine Blood (Negative) Urine Nitrite (Negative) Urine Bilirubin (Negative) Urine Urobilinogen (Normal) mg/dL Ur Leukocyte Esterase (Negative) Ur Squamous Epith Cells (None-Few) per lpf Ur Culture Indicated? (NO) 04/17/18 04/17/18 Range/Units 08:30 08:42 WBC (4.3-11.1) K/mcL RBC (4.19-5.50) M/mcL Hgb (12.9-16.9) g/dL Hct (37.5-50.1) % MCV (83.0-100.0) fL MCH (28.0-33.3) pg MCHC (31.6-35.5) g/dL RDW (11.5-14.5) % Plt Count (140-400) K/mcL MPV (9.4-12.4) fL Immature Gran % (0-4) % Seg Neutrophils % % Lymphocytes % % Monocytes % % Eosinophils % % Basophils % % Neutrophils # (1.6-8.9) K/mcL Lymphocytes # (0.6-4.6) K/mcL Monocytes # (0.0-1.3) K/mcL Eosinophils # (0.0-0.6) K/mcL Basophils # (0.0-0.2) K/mcL PT (9.4-12.1) Seconds INR APTT (26.0-36.0) Seconds ABG pH 7.33 (7.32-7.45) pH Units ABG pCO2 45 (35-45) mmHg ABG pO2 85 (85-104) mmHg ABG HCO3 24 (21-27) mEq/L ABG Total CO2 25 (20-26) mEq/L ABG O2 Saturation 96 (95-98) % ABG Base Excess -2 (-2 to 3) mEq/L Sodium (136-145) mEq/L Potassium (3.5-5.1) mEq/L Chloride (98-107) mEq/L Carbon Dioxide (23-29) mEq/L BUN (8-23) mg/dL Creatinine (0.70-1.30) mg/dL Est GFR ( Amer) (> 60) Est GFR (Non-Af Amer) (> 60) BUN/Creatinine Ratio (6-26) Glucose (70-105) mg/dL Calculated Osmolality (280-300) Lactic Acid (0.5-2.2) mmol/L Calcium (8.6-10.3) mg/dL Phosphorus (2.7-4.5) mg/dL Magnesium 1.3 L (1.6-2.6) mg/dL Total Bilirubin (0.3-1.0) mg/dL Direct Bilirubin (0.0-0.2) mg/dL Indirect Bilirubin (0.0-1.2) mg/dL AST (13-39) Units/L ALT (7-52) Units/L Alkaline Phosphatase (34-104) Units/L Troponin I (< 0.04) ng/mL B-Natriuretic Peptide (Less than 100) pg/mL Serum Total Protein (6.4-8.9) g/dL Albumin (3.5-5.7) g/dL Globulin (2.4-3.5) g/dL Albumin/Globulin Ratio (1.1-2.2) Urine Color (Yellow) Urine Clarity (Clear) Urine pH (5.0-8.0) pH Units Ur Specific [place] (1.010-1.025) Urine Protein (Neg-Trace) mg/dL Urine Glucose (UA) (Normal) mg/dL Urine Ketones (Negative) mg/dL Urine Blood (Negative) Urine Nitrite (Negative) Urine Bilirubin (Negative) Urine Urobilinogen (Normal) mg/dL Ur Leukocyte Esterase (Negative) Ur Squamous Epith Cells (None-Few) per lpf Ur Culture Indicated? (NO) - Radiology Data Radiology results reviewed: Yes I reviewed the patient's radiology results. Patient's chest x-ray was interpreted by the radiologist and reviewed him he has positive for a stable bibasilar opacities unchanged from previous exams no acute new abnormalities. Results discussed with patient and family. Patient also had a CT of his head which is interpreted by the radiologist as negative for acute changes. Results discussed with patient. - EKG Data EKG attestation: Yes I reviewed and interpreted this EKG. EKG shows normal: Reports: sinus rhythm Rate: Reports: normal Rhythm: Reports: NSR [place]/QRS: Reports: RBBB, LPHB/LPFB T wave inversions noted in: Reports: III, v2, v3 Interpretation: Reports: unchanged when compared to prior tracing (date) (02/25/18) S.B.A.R. - S.B.A.R. Situation: Demographics, MOA Background: Presenting Complaint, Relevant PMH, Meds, & Allergies Assessment: Vital Signs, Course and respsone to treatment, Exam Concerns, Patient/Family Expectation, Pertinant Lab Results, Outstanding Labs Recommendation: Barrier(s) to disposition, Recommendation based on pending studies, treatments, or consults [place] Report Given to: Dr Wilner Ibrahim Repor Time: 09:05
[2018-04-17] MEDS ORDERED: 0.9 % Sodium Chloride 1,000 ML IVC SCH ×3 (08:30→10:35)
[2018-04-17 08:39] LABS: Basophils # 0.1 K/mcL (0.0-0.2); Eosinophils # 0.6 K/mcL (0.0-0.6); Eosinophils % 7.1 %; Hematocrit 42.5 % (37.5-50.1); Hemoglobin 13.7 g/dL (12.9-16.9); Immature Granulocytes % 0.6 % (0-4); Lymphocytes # 1.2 K/mcL (0.6-4.6); Lymphocytes % 14.2 %; Mean Corpuscular HGB Conc 32.2 g/dL (31.6-35.5); Mean Corpuscular Hemoglobin 30.7 pg (28.0-33.3); Mean Corpuscular Volume 95.3 fL (83.0-100.0); Mean Platelet Volume 11.8 fL (9.4-12.4); Monocytes # 0.7 K/mcL (0.0-1.3); Monocytes % 8.8 %; Neutrophils # 5.6 K/mcL (1.6-8.9); Platelet Count 168 K/mcL (140-400); Red Blood Count 4.46 M/mcL (4.19-5.50); Red Cell Distribution Width 15.9 % (11.5-14.5); Segmented Neutrophils % 68.3 %
[2018-04-17 08:45] LABS: ABG Base Excess -2 mEq/L (-2 to 3); ABG HCO3 24 mEq/L (21-27); ABG Oxygen Saturation 96 % (95-98); ABG PCO2 45 mmHg (35-45); ABG PH 7.33 pH Units (7.32-7.45); ABG PO2 85 mmHg (85-104); ABG TCO2 25 mEq/L (20-26)
[2018-04-17 08:51] LABS: INR 1.5; Prothrombin Time 17.3 Seconds (9.4-12.1)
[2018-04-17 08:57] LABS: Troponin I < 0.03 ng/mL (< 0.04)
[2018-04-17 09:02] LABS: Alanine Aminotransferase 20 Units/L (7-52); Albumin 3.7 g/dL (3.5-5.7); Albumin/Globulin Ratio 1.5 (1.1-2.2); Alkaline Phosphatase 83 Units/L (34-104); Aspartate Amino Transferase 16 Units/L (13-39); BUN/Creatinine Ratio 23 (6-26); Bilirubin,Direct 0.2 mg/dL (0.0-0.2); Bilirubin,Indirect 0.5 mg/dL (0.0-1.2); Bilirubin,Total 0.7 mg/dL (0.3-1.0); Blood Urea Nitrogen 18 mg/dL (8-23); Calcium 8.7 mg/dL (8.6-10.3); Carbon Dioxide 27 mEq/L (23-29); Chloride 106 mEq/L (98-107); Globulin 2.4 g/dL (2.4-3.5); Glucose 208 mg/dL (70-105); Magnesium 1.3 mg/dL (1.6-2.6); Osmolality,Calculated 294 (280-300); Phosphorous 3.8 mg/dL (2.7-4.5); Potassium 4.9 mEq/L (3.5-5.1); Sodium 138 mEq/L (136-145); Total Protein 6.1 g/dL (6.4-8.9); eGFR For Non-African Americans > 60 (> 60)
[2018-04-17] MEDS ORDERED: Naloxone 0.4 MG/ML INJ IVP PRN (10:39)
[2018-04-17] MEDS ORDERED: Albuterol 2.5 MG/3 ML NEBULIZER IH PRN (11:04)
--- NOTE | 2018-04-17 12:06 | Internal Med History&Physical ---
Addendum entered and electronically signed by Shefali Miranda 04/19/18 20:12: I have personally performed a face to face evaluation on this patient. I have reviewed and agree with the care plan. History and Exam by me shows: lungs: prominent end insp musical wheezes bilateral. bilat UE clubbing to fingers PT is ex smoker. Worked around smoke in [employer] 30 years. He is extremely sob on exertion desats on exertion since he was dc in nov he has been sitting at home he was given outpt rehab but was only able to go twice due to extreme sob he would like inpatient rehab discussed with family who agrees Original Note: Date of Encounter: 04/17/18 Time of Encounter: 11:56 Assessment and Plan (1) COPD exacerbation Current visit: Yes Status: Chronic Patient was admitted through the emergency department after experiencing an episode of syncope following an episode of dyspnea this morning. Noticed syncopal episode by his daughter and was transported to emergency department for, per medical records he showed his being in awake and appropriate at time of arrival. Patient has a long history of COPD and is oxygen dependent at home. States that he has dyspnea with minimal exertion and at this morning he became very short of breath prior to his syncopal episode. Denies any fever or chills, but initial chest x-ray did show several opacities, which have been present since his last x-ray in February. Initial ABGs in the emergency department showed no acute issues. Patient was treated with fluids and bronchodilators in the emergency department and currently states that his breathing feels relaxed. Patient was started on cortical steroids and antibiotics, which will continue. Patient received fluid resuscitation and emergency department. We will hold today's scheduled diuretics, from his home medications. We will continue with current home medications and discuss with Dr. Miranda. (2) CAD (coronary artery disease) Current visit: Yes Status: Chronic Patient with a long history of coronary artery disease which includes several PTCAs in the past. Patient states that he has not experienced any angina since his last PTCA several years ago. Denies any chest discomforts or palpitations. Initial troponin was negative. We will repeat troponin at 2 PM. Initial EKG showed SR without ectopy. Will continue on current home meds. Qualifiers: Coronary Disease-Associated Artery/Lesion type: [place] artery [place] vs. transplanted heart: unspecified whether [place] or transplanted heart Associated angina: without angina Qualified Code(s): I25.10 - Atherosclerotic heart disease of [place] coronary artery without angina pectoris (3) Diabetes type 2, controlled Current visit: Yes Status: Chronic Initial Glucose was elevated. Will start on FS AC and HS and cover with sliding scale insulin. Will obtain a HgbA1c. Continue on home meds. Qualifiers: Diabetes mellitus manager intermediate insulin use: with manager intermediate use Diabetes mellitus complication status: without complication Qualified Code(s): E11.9 - Type 2 diabetes mellitus without complications; Z79.4 - watermaster (current) use of insulin (4) History of atrial fibrillation Current visit: Yes Status: Chronic EKG shows NSR. Continues on Xarelto. Will continue to monitor. Internal Medicine - H&P: HPI Chief complaint: Dyspnea Admitted From: Home Plans for Post Hospital Care: Home History of present illness: Mr. Feliz is a 72 year old male , who presented to the emergency department from EMS transport with complaints of unresponsiveness and dyspnea. Patient reportedly was at home and using her bathroom this morning. States that he began to having increasing dyspnea with the exertion and while making it back to his bed he began to having increasing shortness of breath, stating that he couldn't catch his breath. The last thing her remembers is making it to the bed. His [id number] was present and witness him becoming unresponsive. She immediately activated EMS. Upon arrival to ED, per medical records, patient was awake and responding appropriately. He was treated with IV fluids, bronchodialators and started on cortical steriords. CXR showed several opacities, which were present on a previous film from Feb. and appeared unchanged. He was started on ATB and decision was made for him to admit for further evaluation. His lactic acid was >1.1 and patient rec'd 3L O.9NS. VS remained WNL. Troponin was negative. ABG showed normal. Patient states that he had dyspnea, but denies any chest pain or palpitations. Denies discomforts. Denies any dizziness, lightneadedness or flu-like symptoms. Denies any fever/chills, productive cough or dysuria. Denies any acute neuro deficits. States that he uses Oxygen continuously at home at 2 LPM and when he becomes winded, he increases the flow to 4 LPM until he compensates. States that he checks his glucose at home and usually runs 150-200. States that EMS checked his glucose when they arrived and it wa >300. Past Med Surg Social Fam HX - Past Medical History Medical history: aortic aneurysm, arthritis, atrial fibrillation, COPD, coronary artery disease, diabetes, GERD, hyperlipidemia, hypertension, myocardial infarction Additional medical history: unsure if has aneurysm-they checked it and said it wasn't bad enough to do anything with yet. left pedals pulses weak Psychiatric history: no psych history - Past Surgical History Surgical History: angioplasty/stent, appendectomy, cataract, herniorrhaphy Additional surgical history: hernia repair x 2 - Social History Smoking Status: Former smoker Smokeless Tobacco Status: No Alcohol use: rarely Drug use: none - Family History Father Adopted: No Family Member Ethnicity: Non- Living Status: Hx Family Cardiac Disorders: Yes Hx Family Respiratory Disorders: No Hx Family Cancer: No Hx Family GI Disorders: No Hx Family Endocrine Disorder: Yes Hx Family Neuromuscular Disorders: No Hx Family Neurologic Disorders: No Hx Family HEENT Disorders: No Hx Family Autoimmune Disorders: No Mother Family Member Ethnicity: Non- Living Status: Hx Family Cardiac Disorders: Yes (father and brother) Hx Family Respiratory Disorders: Yes (mother , brother) Hx Family Cancer: Yes (mother,brother,sister) Hx Family GI Disorders: No Hx Family Endocrine Disorder: Yes (father) Hx Family Neuromuscular Disorders: No Hx Family Neurologic Disorders: No Hx Family HEENT Disorders: No Hx Family Autoimmune Disorders: No Brother Living Status: Hx Family Cardiac Disorders: Yes Internal Medicine - H&P: Meds Allopurinol [Zyloprim] 100 mg PO BID 01/28/15 [History] Amlodipine [Norvasc] 5 mg PO DAILY 01/28/15 [History] CloNIDine HCl 0.1 mg PO DAILY 01/28/15 [History] Metformin [Glucophage] 500 mg PO BID 01/28/15 [History] Metoprolol [Lopressor] 1 tab PO DAILY 01/28/15 [History] Omeprazole [PriLOSEC] 20 mg PO BID 01/28/15 [History] Albuterol Neb [Proventil Neb] 2.5 mg IH PRN PRN 04/27/15 [History] Aspirin [Adult Low Dose Aspirin EC] 1 tab PO DAILY 04/27/15 [History] Atorvastatin [Lipitor] 40 mg PO HS 10/14/15 [History] Chlorthalidone 25 mg PO DAILY 10/14/15 [History] Insulin DETEMIR [Levemir] 30 unit SQ HS 10/14/15 [History] rOPINIRole [Requip] 1 mg PO HS 10/14/15 [History] Linagliptin [Tradjenta] 5 mg PO DAILY 08/13/16 [History] Rivaroxaban [Xarelto] 10 mg PO DAILY 08/13/16 [History] Salmeterol Xinafoate [Serevent Diskus] 50 mcg IH BID 08/13/16 [History] Lisinopril [Zestril] 5 mg PO DAILY 02/14/18 [History] Ferrous Sulfate [Iron] 325 mg PO DAILY 04/09/18 [History] Loratadine [Allergy Relief] 10 mg PO DAILY 04/09/18 [History] Sotalol [Betapace] 80 mg PO Q12HR 04/09/18 [History] Allergy/AdvReac Type Severity Reaction Status Date / Time azithromycin Allergy Hives Verified 05/23/15 20:02 All Systems PM: A 10-system review of systems was performed and is negative for pertinent findings except as documented above in the HPI. - Constitutional Constitutional: as per HPI, no chills, no fever(s), no night sweats - EENT Eyes: as per HPI, no change in vision, no discharge, no pain, no photophobia Ears: no ear discharge, no ear pain, no tinnitus Nose, mouth and throat: as per HPI, no dysphagia, no nasal discharge, no neck pain, no sore throat - Cardiovascular Cardiovascular ROS IM: as per HPI, no chest pain, no diaphoresis, no dyspnea, no lightheadedness, no palpitations, no syncope - Respiratory Respiratory: as per HPI, no cough, no dyspnea, no wheezing, no excessive phlegm production - Gastrointestinal Gastrointestinal: as per HPI, no abdominal pain, no diarrhea, no hematemesis, no hematochezia, no melena, no nausea, no vomiting - Genitourinary Genitourinary ROS male: as per HPI - Musculoskeletal Musculoskeletal ROS IM: as per HPI, no numbness, no tingling - Integumentary Integumentary IM: as per HPI, no rash, no unusual bruising - Neurological Neurological ROS: as per HPI, no confusion, no convulsions, no focal weakness, no numbness, no tingling, no tremor(s) - Hematologic/Lymphatic Hematologic/Lymphatic: no easy bruising - Constitutional Vitals: Temp Pulse Resp BP Pulse Ox 98.1 F 79 20 121/78 95 04/17/18 08:21 04/17/18 09:52 04/17/18 10:53 04/17/18 10:53 04/17/18 09:52 General appearance: Present: A&O X 3, pleasant - Head Head exam: Present: atraumatic, normocephalic - Eye Eye exam: Present: PERRL, conjuntiva pink, sclera anicteric Pupils: Present: PERRL - Neck Neck exam general surgery: Present: supple, trachea midline. Absent: lymphadenopathy - Respiratory Respiratory exam: Present: CTAB, rales. Absent: accessory muscle use, rhonchi, wheezes Additional comments: Lungs are clear throughout upper ling with diminished lungs to lower half of ling. Noted fine posterior bibasilar rales. Respiratory effort appears relaxed. No productive cough. - Cardiovascular Cardiovascular exam: Present: irregular rhythm, RRR, +S1, +S2. Absent: diastolic murmur, gallop, rubs, systolic murmur Additional comments: Carotids auscultated with no bruit heard - GI/Abdominal GI/Abdominal exam: Present: normal bowel sounds, soft, no peritoneal signs. Absent: distended, tenderness - Extremities Exam Extremities exam: Present: warm, radial pulses palpable and symmetrical. Absent: calf tenderness, cyanotic, pedal edema - Neurological Exam Neurological exam: Present: CN II-XII intact, oriented X3, no focal deficits. Absent: pronater drift, facial droop, speech deficit - Skin Skin exam: Present: dry, intact Internal Med - H&P Results - Labs CBC & Chem 7: 04/17/18 08:30 04/17/18 08:30 Labs: Short CBC 04/17/18 Range/Units 08:30 WBC 8.2 (4.3-11.1) K/mcL Hgb 13.7 (12.9-16.9) g/dL Hct 42.5 (37.5-50.1) % Plt Count 168 (140-400) K/mcL Neutrophils # 5.6 (1.6-8.9) K/mcL BMP 04/17/18 08:30 Sodium 138 Potassium 4.9 Chloride 106 Carbon Dioxide 27 BUN 18 Creatinine 0.79 Glucose 208 H Calcium 8.7 Cardiac Enzymes 04/17/18 Range/Units 08:30 Troponin I < 0.03 (< 0.04) ng/mL Liver Function 04/17/18 Range/Units 08:30 Total Bilirubin 0.7 (0.3-1.0) mg/dL Direct Bilirubin 0.2 (0.0-0.2) mg/dL AST 16 (13-39) Units/L ALT 20 (7-52) Units/L Alkaline Phosphatase 83 (34-104) Units/L Albumin 3.7 (3.5-5.7) g/dL - ABG Interpretation ABG results: 04/17/18 08:42 ABG pH 7.33 ABG pCO2 45 ABG pO2 85 ABG HCO3 24 ABG Total CO2 25 ABG O2 Saturation 96 ABG Base Excess -2 - Impressions ITS Impressions Chest X-Ray 04/17/18 08:19 IMPRESSION: Coarse airspace opacities are noted bilaterally not significantly changed. Previously noted nodular opacities on radiograph are not well appreciated on today's study. No other acute cardiopulmonary findings. D/ / Rain Sheth MD / Rain Sheth MD Interpreting Provider: Rain Sheth MD Head CT 04/17/18 08:22 IMPRESSION: No acute intracranial abnormality. D/ / 04/17/2018 09:41:05 Vincenzo Phillips MD / dory Interpreting Provider: Vincenzo Phillips MD
[2018-04-17 12:25] LABS: Bilirubin,Urine Negative (Negative); Blood,Urine Negative (Negative); Clarity,Urine Clear (Clear); Color,Urine Yellow (Yellow); Glucose,Urine (UA) Normal (Normal); Ketones,Urine Negative (Negative); Leukocyte Esterase,Urine Negative (Negative); Nitrite,Urine Negative (Negative); PH,Urine 5.5 pH Units (5.0-8.0); Protein,Urine 30 mg/dL (Neg-Trace); Urobilinogen,Urine Normal (Normal)
[2018-04-17 12:31] LABS: Squamous Epithelial Cell,Urine Few per lpf (None-Few)
--- NOTE | 2018-04-17 14:58 | Electrocardiograph Report ---
[place] [id number] Test Date: 2018-04-17 Pat Name: Herminio Feliz Department: 2000 Room: 111 Gender: M Travel Pt: GRACIE : 1945 Requested By: Kandace Patel Order Number: [id number] Reading MD: Franco Alfaro Measurements Intervals [place] Rate: 78 P: 15 AR: 232 QRS: 114 QRSD: 158 T: -1 QT: 459 QTc: 493 Interpretive Statements SINUS RHYTHM WITH FIRST DEGREE AV BLOCK RIGHT BUNDLE BRANCH BLOCK LEFT POSTERIOR FASCICULAR BLOCK Electronically Signed On 04-17-2018 14:56:28 EST by Franco Alfaro
[2018-04-17] MEDS: Ipratropium/Albuterol Neb 3 ML IH SCH ×2 (15:56→21:54)
[2018-04-17] MEDS ORDERED: Albuterol 2.5 MG/3 ML NEBULIZER IH SCH (16:00)
[2018-04-17] MEDS: methylPREDNISolone 125 MG/2 ML VIAL IVP SCH ×2 (16:16→17:38)
[2018-04-17] MEDS: *HR* Metformin 500 MG TABLET PO SCH (17:38)
[2018-04-17 20:02] LABS: Estimated Average Glucose 200 mg/dl; Hemoglobin A1C 8.6 %
[2018-04-17] MEDS: rOPINIRole 1 MG TABLET PO SCH (20:23)
[2018-04-17] MEDS: Insulin DETEMIR 100 UNIT/ML X5UNITS SQ SCH (20:23)
[2018-04-17] MEDS ORDERED: NON-FORMULARY MEDICATION 1 EACH EACH (Salmeterol Xinafoate [Serevent Diskus] 50 MCG) IH SCH (21:00)
[2018-04-18] MEDS: methylPREDNISolone 125 MG/2 ML VIAL IVP SCH (04:00)
[2018-04-18] MEDS: Ipratropium/Albuterol Neb 3 ML IH SCH ×4 (04:00→20:45)
[2018-04-18 05:20] LABS: Basophils % 0.3 %; Hematocrit 39.1 % (37.5-50.1); Hemoglobin 12.9 g/dL (12.9-16.9); Immature Granulocytes % 0.7 % (0-4); Lymphocytes # 0.8 K/mcL (0.6-4.6); Lymphocytes % 10.3 %; Mean Corpuscular Hemoglobin 30.6 pg (28.0-33.3); Mean Corpuscular Volume 92.7 fL (83.0-100.0); Monocytes # 0.5 K/mcL (0.0-1.3); Monocytes % 6.8 %; Neutrophils # 6.1 K/mcL (1.6-8.9); Platelet Count 158 K/mcL (140-400); Red Blood Count 4.22 M/mcL (4.19-5.50); Red Cell Distribution Width 15.3 % (11.5-14.5); Segmented Neutrophils % 81.9 %
[2018-04-18 05:51] LABS: BUN/Creatinine Ratio 21 (6-26); Blood Urea Nitrogen 15 mg/dL (8-23); Calcium 8.8 mg/dL (8.6-10.3); Carbon Dioxide 25 mEq/L (23-29); Chloride 101 mEq/L (98-107); Glucose 278 mg/dL (70-105); Osmolality,Calculated 291 (280-300); Potassium 3.7 mEq/L (3.5-5.1); Sodium 135 mEq/L (136-145); eGFR For Non-African Americans > 60 (> 60)
[2018-04-18] MEDS: *HR* Metformin 500 MG TABLET PO SCH ×2 (09:07→16:31)
[2018-04-18] MEDS: Levofloxacin 750 MG/150 ML 750 MG/150 ML BAG IVPB SCH (09:07)
[2018-04-18] MEDS: cloNIDine HCl 0.1 MG TABLET PO SCH (09:07)
[2018-04-18] MEDS: *HR* Rivaroxaban 10 MG TABLET PO SCH (09:07)
[2018-04-18] MEDS: Aspirin Enteric Coated 81 MG Tablet PO SCH (09:08)
[2018-04-18] MEDS: amLODIPine 5 MG TABLET PO SCH (09:08)
[2018-04-18] MEDS: Loratadine 10 MG TABLET PO SCH (09:08)
[2018-04-18] MEDS ORDERED: Dextrose Gel 15 GM/37.5 ML TUBE PO PRN ×2 (12:13)
[2018-04-18] MEDS ORDERED: *HR* Dextrose 50 % in Water (Syg) 50 ML SYRINGE IVP PRN (12:13)
[2018-04-18] MEDS ORDERED: D5% in Water 1,000 ML IVC PRN (12:13)
[2018-04-18] MEDS: MethylPREDNISolone 40 MG/ML VIAL IVP SCH ×2 (12:56→20:44)
[2018-04-18] MEDS: Insulin LISPRO 300 UNITS/3 ML VIAL SQ SCH ×3 (12:57→20:46)
[2018-04-18] MEDS: Insulin DETEMIR 100 UNIT/ML X5UNITS SQ SCH (20:45)
[2018-04-18] MEDS: rOPINIRole 1 MG TABLET PO SCH (20:45)
[2018-04-19] MEDS: Ipratropium/Albuterol Neb 3 ML IH SCH ×4 (03:08→20:39)
[2018-04-19] MEDS: MethylPREDNISolone 40 MG/ML VIAL IVP SCH ×3 (03:08→20:39)
[2018-04-19] MEDS: Insulin LISPRO 300 UNITS/3 ML VIAL SQ SCH ×4 (08:34→20:40)
[2018-04-19] MEDS: *HR* Rivaroxaban 10 MG TABLET PO SCH (08:42)
[2018-04-19] MEDS: Aspirin Enteric Coated 81 MG Tablet PO SCH (08:43)
[2018-04-19] MEDS: Loratadine 10 MG TABLET PO SCH (08:43)
[2018-04-19] MEDS: cloNIDine HCl 0.1 MG TABLET PO SCH (08:43)
[2018-04-19] MEDS: *HR* Metformin 500 MG TABLET PO SCH ×2 (08:43→16:41)
[2018-04-19] MEDS: amLODIPine 5 MG TABLET PO SCH (08:43)
[2018-04-19] MEDS: Levofloxacin 750 MG/150 ML 750 MG/150 ML BAG IVPB SCH (08:44)
--- NOTE | 2018-04-19 20:27 | Internal Med Progress Note ---
Date of Encounter: 04/18/18 Time of Encounter: 09:00 - Subjective Interval history: Assessment and Plan (1) COPD exacerbation with severe debility Current visit: Yes Status: acute on Chronic Patient was admitted through the emergency department after experiencing an episode of syncope following an episode of dyspnea this morning. Noticed syncopal episode by his daughter and was transported to emergency department for, per medical records he showed his being in awake and appropriate at time of arrival. Patient has a long history of COPD and is oxygen dependent at home. States that he has dyspnea with minimal exertion and at this morning he became very short of breath prior to his syncopal episode. Denies any fever or chills, but initial chest x-ray did show several opacities, which have been present since his last x-ray in February. Steroids duobebs antbx severe deconditioning needs rehab eval for possible inpatient rehab (2) CAD (coronary artery disease) Current visit: Yes Status: Chronic Patient with a long history of coronary artery disease which includes several PTCAs in the past. Patient states that he has not experienced any angina since his last PTCA several years ago. Denies any chest discomforts or palpitations. Initial troponin was negative. We will repeat troponin at 2 PM. Initial EKG showed SR without ectopy. Will continue on current home meds. Qualifiers: Coronary Disease-Associated Artery/Lesion type: [place] artery [place] vs. transplanted heart: unspecified whether [place] or transplanted heart Associated angina: without angina Qualified Code(s): I25.10 - Atherosclerotic heart disease of [place] coronary artery without angina pectoris (3) Diabetes type 2, controlled Current visit: Yes Status: Chronic Initial Glucose was elevated. Will start on FS AC and HS and cover with sliding scale insulin. Will obtain a HgbA1c. Continue on home meds. Qualifiers: Diabetes mellitus chcf insulin use: with chcf use Diabetes mellitus complication status: without complication Qualified Code(s): E11.9 - Type 2 diabetes mellitus without complications; Z79.4 - terminal system operator (current) use of insulin (4) History of atrial fibrillation Current visit: Yes Status: Chronic EKG shows NSR. Continues on Xarelto. Will continue to monitor. INTERVAL HISTORY Mr. Feliz is a 72 year old male , who was admit 04/17 to medical floor after being eval in ED for severe dyspnea at rest with episode where he was observed by famlily to be so SOB that he appeared to stop breathing. Family says they gave him a breath and he started to come around. No fall or other complaints. . FAmily immediately activated EMS. Upon arrival to ED, per medical records, patient was awake and responding appropriately. He was treated with IV fluids, bronchodialators and started on cortical steroids/. CXR showed several opacities, which were present on a previous film from Nov. and appeared unchanged. He was started on ATB and decision was made for him to admit for further evaluation. His lactic acid was >1.1 and patient rec'd 3L O.9NS. VS remained WNL. Troponin was negative. Patient states that he had dyspnea, but denies any chest pain or palpitations. Denies discomforts. Denies any dizziness, lightneadedness or flu-like symptoms. Denies any fever/chills, productive cough or dysuria. Denies any acute neuro deficits. States that he uses Oxygen continuously at home at 2 LPM and when wants to move around even a little, says he has to increases the flow to 4 LPM says even with this he has been unable to really get out of chair for several days Pt was DC from here in NOV he states he was unable to benefit from his outpt rehab and wants inpatient rehab he is feeling some better today after treatments Allergy/AdvReac Type Severity Reaction Status Date / Time azithromycin Allergy Hives Verified 05/23/15 20:02 - EXAM General appearance: Present: A&O X 3, pleasant WM SOB after speaks 3 to 4 words [place] but alert - Head Head exam: Present: atraumatic, normocephalic - Eye Eye exam: Present: PERRL, conjuntiva pink, sclera anicteric Pupils: Present: PERRL - Neck Neck exam general surgery: Present: supple, trachea midline. Absent: lymphadenopathy - Respiratory Respiratory exam: Present: bilteral musical wheezes Additional comments: Lungs are clear throughout upper ling with diminished lungs to lower half of ling. Noted fine posterior bibasilar rales. Respiratory effort appears relaxed. No productive cough. - Cardiovascular Cardiovascular exam: Present: irregular rhythm, RRR, +S1, +S2. Absent: diastolic murmur, gallop, rubs, systolic murmur Additional comments: Carotids auscultated with no bruit heard - GI/Abdominal GI/Abdominal exam: Present: normal bowel sounds, soft, no peritoneal signs. Absent: distended, tenderness - Extremities Exam Extremities exam: Present: warm, radial pulses palpable and symmetrical. Absent: calf tenderness, cyanotic, pedal edema - Neurological Exam Neurological exam: Present: CN II-XII intact, oriented X3, no focal deficits. Absent: pronater drift, facial droop, speech deficit - Skin Skin exam: Present: dry, intact - Constitutional Vitals: Temp Pulse Resp BP Pulse Ox 98.2 F 79 18 105/50 94 04/19/18 19:10 04/19/18 19:10 04/19/18 19:10 04/19/18 19:10 04/19/18 19:10 General appearance: Present: A&O X 3, pleasant Internal Medicine: Result - Labs CBC & Chem 7: 04/18/18 05:00 04/18/18 05:00 - ABG Interpretation ABG results: ABG ABG pH 7.33 pH Units (7.32-7.45) 04/17/18 08:42 ABG pCO2 45 mmHg (35-45) 04/17/18 08:42 ABG pO2 85 mmHg (85-104) 04/17/18 08:42 ABG O2 Saturation 96 % (95-98) 04/17/18 08:42 PT/INR, D-dimer PT 17.3 Seconds (9.4-12.1) H 04/17/18 08:30 Consult Discharge Plan - Plan Referrals: NONE,PCP [Primary Care Provider] -
--- NOTE | 2018-04-19 20:29 | Internal Med Progress Note ---
Date of Encounter: 04/19/18 Time of Encounter: 09:00 - Subjective Interval history: Assessment and Plan (1) COPD exacerbation with severe debility Current visit: Yes Status: acute on Chronic Patient was admitted through the emergency department after experiencing an episode of syncope following an episode of dyspnea this morning. Noticed syncopal episode by his daughter and was transported to emergency department for, per medical records he showed his being in awake and appropriate at time of arrival. Patient has a long history of COPD and is oxygen dependent at home. States that he has dyspnea with minimal exertion and at this morning he became very short of breath prior to his syncopal episode. Denies any fever or chills, but initial chest x-ray did show several opacities, which have been present since his last x-ray in February. Steroids duobebs antbx severe deconditioning needs rehab eval for possible inpatient rehab that would benefit him (2) CAD (coronary artery disease) Current visit: Yes Status: Chronic Patient with a long history of coronary artery disease which includes several PTCAs in the past. Patient states that he has not experienced any angina since his last PTCA several years ago. Denies any chest discomforts or palpitations. Initial troponin was negative. We will repeat troponin at 2 PM. Initial EKG showed SR without ectopy. Will continue on current home meds. Qualifiers: Coronary Disease-Associated Artery/Lesion type: [place] artery [place] vs. transplanted heart: unspecified whether [place] or transplanted heart A ssociated angina: without angina Qualified Code(s): I25.10 - Atherosclerotic heart disease of [place] coronary artery without angina pectoris (3) Diabetes type 2, controlled Current visit: Yes Status: Chronic Initial Glucose was elevated. Will start on FS AC and HS and cover with sliding scale insulin. Will obtain a HgbA1c. Continue on home meds. continue levamir 11 u Qualifiers: Diabetes mellitus watermelon harvesting supervisor insulin use: with watermelon harvesting supervisor use Diabetes mellitus complication status: without complication Qualified Code(s): E11.9 - Type 2 diabetes mellitus without complications; Z79.4 - MCFP (current) use of insulin (4) History of atrial fibrillation Current visit: Yes Status: Chronic EKG shows NSR. Continues on Xarelto. Will continue to monitor. INTERVAL HISTORY Mr. Feliz is a 72 year old male , who was admit 04/17 to medical floor after being eval in ED for severe dyspnea at rest with episode where he was observed by famlily to be so SOB that he appeared to stop breathing. Family says they gave him a breath and he started to come around. No fall or other complaints. . FAmily immediately activated EMS. Upon arrival to ED, per medical records, patient was awake and responding appropriately. He was treated with IV fluids, bronchodialators and started on cortical steroids/. CXR showed several opacities, which were present on a previous film from Nov. and appeared unchanged. He was started on ATB and decision was made for him to admit for further evaluation. His lactic acid was >1.1 and patient rec'd 3L O.9NS. VS remained WNL. Troponin was negative. Patient states that he had dyspnea, but denies any chest pain or palpitations. Denies discomforts. Denies any dizziness, lightneadedness or flu-like symptoms. Denies any fever/chills, productive cough or dysuria. Denies any acute neuro deficits. States that he uses Oxygen continuously at home at 2 LPM and when wants to move around even a little, says he has to increases the flow to 4 LPM says even with this he has been unable to really get out of chair for several days Pt was DC from here in NOV he states he was unable to benefit from his outpt rehab and wants inpatient rehab he is feeling some better today after treatments Allergy/AdvReac Type Severity Reaction Status Date / Time azithromycin Allergy Hives Verified 05/23/15 20:02 - EXAM General appearance: Present: A&O X 3, pleasant WM SOB after speaks 3 to 4 wor ds [place] but alert - Eye Eye exam: Present: PERRL, conjuntiva pink, sclera anicteric Pupils: Present: PERRL - Neck Neck exam general surgery: Present: supple, trachea midline. Absent: lymphadenopathy - Respiratory Respiratory exam: Present: bilteral musical wheezes Additional comments: Lungs are clear throughout upper ling with diminished lungs to lower half of ling. Noted fine posterior bibasilar rales. Respiratory effort appears relaxed. No productive cough. - Cardiovascular Cardiovascular exam: Present: irregular rhythm, RRR, +S1, +S2. Absent: diastolic murmur, gallop, rubs, systolic murmur Additional comments: - GI/Abdominal GI/Abdominal exam: Present: normal bowel sounds, soft, no peritoneal signs. A bsent: distended, tenderness - Extremities Exam Extremities exam: Present: warm, radial pulses palpable and symmetrical. Absent: calf tenderness, cyanotic, pedal edema - Neurological Exam Neurological exam: Present: CN II-XII intact, oriented X3, no focal deficits. Absent: pronater drift, facial droop, speech deficit - Skin Skin exam: Present: dry, intact - Constitutional Vitals: Temp Pulse Resp BP Pulse Ox 98.2 F 79 18 105/50 94 04/19/18 19:10 04/19/18 19:10 04/19/18 19:10 04/19/18 19:10 04/19/18 19:10 General appearance: Present: A&O X 3, pleasant Internal Medicine: Result - Labs CBC & Chem 7: 04/18/18 05:00 04/18/18 05:00 - ABG Interpretation ABG results: ABG ABG pH 7.33 pH Units (7.32-7.45) 04/17/18 08:42 ABG pCO2 45 mmHg (35-45) 04/17/18 08:42 ABG pO2 85 mmHg (85-104) 04/17/18 08:42 ABG O2 Saturation 96 % (95-98) 04/17/18 08:42 PT/INR, D-dimer PT 17.3 Seconds (9.4-12.1) H 04/17/18 08:30 Consult Discharge Plan - Plan Referrals: NONE,PCP [Primary Care Provider] -
[2018-04-19] MEDS: Insulin DETEMIR 100 UNIT/ML X5UNITS SQ SCH (20:38)
[2018-04-19] MEDS: rOPINIRole 1 MG TABLET PO SCH (20:39)
[2018-04-20] MEDS: Ipratropium/Albuterol Neb 3 ML IH SCH ×4 (04:38→21:10)
[2018-04-20] MEDS: MethylPREDNISolone 40 MG/ML VIAL IVP SCH ×2 (04:38→14:10)
[2018-04-20 05:39] LABS: BUN/Creatinine Ratio 27 (6-26); Blood Urea Nitrogen 20 mg/dL (8-23); Carbon Dioxide 27 mEq/L (23-29); Chloride 97 mEq/L (98-107); Glucose 417 mg/dL (70-105); Osmolality,Calculated 296 (280-300); Potassium 4.2 mEq/L (3.5-5.1); Sodium 133 mEq/L (136-145); eGFR For Non-African Americans > 60 (> 60)
[2018-04-20] MEDS: Levofloxacin 750 MG/150 ML 750 MG/150 ML BAG IVPB SCH (07:44)
[2018-04-20] MEDS: amLODIPine 5 MG TABLET PO SCH (07:45)
[2018-04-20] MEDS: Aspirin Enteric Coated 81 MG Tablet PO SCH (07:45)
[2018-04-20] MEDS: cloNIDine HCl 0.1 MG TABLET PO SCH (07:45)
[2018-04-20] MEDS: *HR* Rivaroxaban 10 MG TABLET PO SCH (07:45)
[2018-04-20] MEDS: *HR* Metformin 500 MG TABLET PO SCH ×2 (07:45→17:26)
[2018-04-20] MEDS: Loratadine 10 MG TABLET PO SCH (07:45)
[2018-04-20] MEDS: Insulin LISPRO 300 UNITS/3 ML VIAL SQ SCH ×4 (07:50→20:17)
--- NOTE | 2018-04-20 10:05 | Internal Med Progress Note ---
Addendum entered and electronically signed by Aiden Cooper MD 04/20/18 14:16: I have personally performed a face to face evaluation on this patient. I have r eviewed and agree with the care plan. History and Exam by me shows: Patient feels like he is improved. He states that his breathing is not normal for him but almost. He has less cough and he still is dyspneic with exertion. He has oxygenation is stable while on 2 L. His bowels moved this morning. He notes bladder hesitancy but is feeling like he is emptying well. He denies problems other than breathing. Discussed care with other providers and/or nursing. Patient has no complaint of chest discomfort, dyspnea, orthopnea, palpitations, nausea or vomiting, constipation or diarrhea, other changes in bowel habits, difficulty with urination, rash or itching, or other new complaints, except as mentioned above. Review of systems is otherwise negative. Examination: (Except as mentioned above): General: In no apparent distress. Alert and oriented 3. Nondiaphoretic. Head: Atraumatic and normocephalic. Respiratory: No use of accessory muscles. Lungs are clear throughout, except some right basilar rales.. Normal airflow. Cardiovascular: Regular rate and rhythm without murmur appreciated. Abdomen: Bowel sounds are normal. No hepatosplenomegaly mass or tenderness appreciated. Obese and therefore difficult to palpate deeply. Extremities: No cyanosis clubbing or edema. Skin: Warm and non-diaphoretic with no new lesions noted. His sugars have been high and so we will switch from IV to oral steroids and follow with sliding scale insulin. No medication changes, yet. We will use only prednisone 20 mg per day and see if we can go down to 10. He has been evaluated by therapies and he is presumed to be a good candidate for rehabilitation at S1 level. Insurance approval is pending. Original Note: Date of Encounter: 04/20/18 Time of Encounter: 10:03 - Assessment and plan (1) COPD exacerbation Current Visit: Yes Status: Chronic Assessment and plan: Improving. Continue Levaquin and steroids. Continue O2 per nasal cannula. Maintaining sets greater than 95%. (2) General weakness Current Visit: Yes Status: Acute Assessment and plan: PT and OT to eval and treat. (3) Diabetes type 2, controlled Current Visit: Yes Status: Chronic Assessment and plan: Glucose has been elevated. Continue sliding scale and Levemir. Will adjust as necessary. 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 Denies chest pain. Continue current medication. Qualifiers: Coronary Disease-Associated Artery/Lesion type: [place] artery [place] vs. transplanted heart: unspecified whether [place] or transplanted heart Associated angina: without angina Qualified Code(s): I25.10 - Atherosclerotic heart disease of [place] coronary artery without angina pectoris - Time Spent With Patient less than 15 minutes - Subjective Interval history: Patient here for COPD exacerbation. Taking steroids and Levaquin IV. Patient maintaining stats greater than 95% on O2 at 2 L. Where is chronic O2 at home. Lives with family. Patient has become more deconditioned. PT and OT to eval and treat. May benefit from inpatient rehab stay versus outpatient therapy. Patient denies fever, chills, nausea, vomiting or diarrhea. Denies shortness of breath or chest pain. Maintaining appetite and hydration. Glucose has been elevated. Patient on sliding scale insulin. Elevation is probably due to steroids. - Constitutional Vitals: Temp Pulse Resp BP Pulse Ox 97.5 F L 85 19 136/65 96 04/20/18 07:23 04/20/18 07:23 04/20/18 09:32 04/20/18 07:23 04/20/18 09:32 General appearance: Present: A&O X 3, pleasant, no acute distress, answers questions appropriately - Head Head exam: Present: atraumatic, normocephalic - Eye Eye exam: Present: PERRL, conjuntiva pink, sclera anicteric Pupils: Present: PERRL - Neck Neck exam general surgery: Present: supple, trachea midline. Absent: lymphadenopathy - Respiratory Respiratory exam: Present: CTAB. Absent: accessory muscle use, rales, rhonchi, wheezes - Cardiovascular Cardiovascular exam: Present: RRR, +S1, +S2. Absent: diastolic murmur, gallop, rubs, systolic murmur - GI/Abdominal GI/Abdominal exam: Present: normal bowel sounds, soft, no peritoneal signs. Absent: distended, tenderness - Extremities Exam Extremities exam: Present: warm, radial pulses palpable and symmetrical. Absent: calf tenderness, cyanotic, pedal edema - Neurological Exam Neurological exam: Present: CN II-XII intact, oriented X3, no focal deficits. Absent: pronater drift, facial droop, speech deficit - Skin Skin exam: Present: dry, intact Additional comments: IV in R anticub. No redness. Internal Medicine: Result - Labs CBC & Chem 7: 04/18/18 05:00 04/20/18 05:00 Labs: BMP 04/20/18 05:00 Sodium 133 L Potassium 4.2 Chloride 97 L Carbon Dioxide 27 BUN 20 Creatinine 0.75 Glucose 417 H Calcium 9.0 - ABG Interpretation ABG results: ABG ABG pH 7.33 pH Units (7.32-7.45) 04/17/18 08:42 ABG pCO2 45 mmHg (35-45) 04/17/18 08:42 ABG pO2 85 mmHg (85-104) 04/17/18 08:42 ABG O2 Saturation 96 % (95-98) 04/17/18 08:42 PT/INR, D-dimer PT 17.3 Seconds (9.4-12.1) H 04/17/18 08:30 Consult Discharge Plan - Plan Referrals: NONE,PCP [Primary Care Provider] -
[2018-04-20] MEDS: predniSONE 20 MG TABLET PO SCH (14:15)
[2018-04-20] MEDS: rOPINIRole 1 MG TABLET PO SCH (20:09)
[2018-04-20] MEDS: Insulin DETEMIR 100 UNIT/ML X5UNITS SQ SCH (20:16)
[2018-04-21] MEDS: Ipratropium/Albuterol Neb 3 ML IH SCH ×2 (03:20→10:27)
[2018-04-21 06:06] LABS: BUN/Creatinine Ratio 27 (6-26); Blood Urea Nitrogen 20 mg/dL (8-23); Calcium 9.2 mg/dL (8.6-10.3); Carbon Dioxide 32 mEq/L (23-29); Chloride 95 mEq/L (98-107); Glucose 308 mg/dL (70-105); Osmolality,Calculated 292 (280-300); Potassium 4.4 mEq/L (3.5-5.1); Sodium 134 mEq/L (136-145); eGFR For Non-African Americans > 60 (> 60)
[2018-04-21 06:52] VITALS: BP 142/89
[2018-04-21] MEDS: cloNIDine HCl 0.1 MG TABLET PO SCH (08:56)
[2018-04-21] MEDS: amLODIPine 5 MG TABLET PO SCH (08:56)
[2018-04-21] MEDS: Loratadine 10 MG TABLET PO SCH (08:56)
[2018-04-21] MEDS: *HR* Rivaroxaban 10 MG TABLET PO SCH (08:56)
[2018-04-21] MEDS: predniSONE 20 MG TABLET PO SCH (08:56)
[2018-04-21] MEDS: *HR* Metformin 500 MG TABLET PO SCH (08:56)
[2018-04-21] MEDS: Aspirin Enteric Coated 81 MG Tablet PO SCH (08:56)
[2018-04-21] MEDS: Insulin LISPRO 300 UNITS/3 ML VIAL SQ SCH (08:59)
[2018-04-21] MEDS ORDERED: levoFLOXacin 750 MG TABLET PO SCH (09:00)
--- NOTE | 2018-04-21 10:15 | Discharge Summary ---
Addendum entered and electronically signed by Aiden Cooper MD 04/21/18 11:34: I have personally performed a face to face evaluation on this patient. I have r eviewed and agree with the care plan. History and Exam by me shows: Please see swing H&P, this date. Original Note: Orders not resulted at time of discharge: Pending orders 04/17/18 08:35 Culture,Blood [BC] Stat 04/22/18 04:00 Basic Metabolic Panel AM 0400 Date of Encounter: 04/21/18 Time of Encounter: 10:13 - Discharge Diagnosis (1) COPD exacerbation Priority: Primary Status: Chronic Comments: continue levaquin and PO prednisone. improving. continue O2 per [place] (2) General weakness Priority: Secondary Status: Acute Comments: Transferring to swing bed for continued therapy. (3) Diabetes type 2, controlled Priority: Secondary Status: Chronic Comments: Continue insulin per sliding scale and Levemir. Monitor fingerstick blood sugars. Will adjust as necessary. Qualifiers: Diabetes mellitus senior living insulin use: with senior living use Diabetes mellitus complication status: without complication Qualified Code(s): E11.9 - Type 2 diabetes mellitus without complications; Z79.4 - halfway (current) use of insulin (4) CAD (coronary artery disease) Priority: Secondary Status: Chronic Comments: Stable. Denies chest pain. Continue current medication. Qualifiers: Coronary Disease-Associated Artery/Lesion type: [place] artery [place] vs. transplanted heart: unspecified whether [place] or transplanted heart Associated angina: without angina Qualified Code(s): I25.10 - Atherosclerotic heart disease of [place] coronary artery without angina pectoris Hospital course: Mr. Feliz is a 72 year old male Discharge discussed with: patient, family, nurse, social work - Time Spent with Patient Total time spent providing and/or coordinating discharge services: Less than 30 minutes - Discharge Medications Home Medications: Allopurinol [Zyloprim] 100 mg PO BID 01/28/15 [History] Amlodipine [Norvasc] 5 mg PO DAILY 01/28/15 [History] CloNIDine HCl 0.1 mg PO DAILY 01/28/15 [History] Metformin [Glucophage] 500 mg PO BID 01/28/15 [History] Metoprolol [Lopressor] 1 tab PO DAILY 01/28/15 [History] Omeprazole [PriLOSEC] 20 mg PO BID 01/28/15 [History] Albuterol Neb [Proventil Neb] 2.5 mg IH PRN PRN 04/27/15 [History] Aspirin [Adult Low Dose Aspirin EC] 1 tab PO DAILY 04/27/15 [History] Atorvastatin [Lipitor] 40 mg PO HS 10/14/15 [History] Chlorthalidone 25 mg PO DAILY 10/14/15 [History] Insulin DETEMIR [Levemir] 30 unit SQ HS 10/14/15 [History] rOPINIRole [Requip] 1 mg PO HS 10/14/15 [History] Linagliptin [Tradjenta] 5 mg PO DAILY 08/13/16 [History] Rivaroxaban [Xarelto] 10 mg PO DAILY 08/13/16 [History] Salmeterol Xinafoate [Serevent Diskus] 50 mcg IH BID 08/13/16 [History] Lisinopril [Zestril] 5 mg PO DAILY 02/14/18 [History] Ferrous Sulfate [Iron] 325 mg PO DAILY 04/09/18 [History] Loratadine [Allergy Relief] 10 mg PO DAILY 04/09/18 [History] Sotalol [Betapace] 80 mg PO Q12HR 04/09/18 [History] Allergies/Adverse Reactions: Allergy/AdvReac Type Severity Reaction Status Date / Time azithromycin Allergy Hives Verified 05/23/15 20:02 Date of admission: 04/20/18 17:32 Primary care physician: PCP NONE Consults: 04/17/18 17:29 Consult to Occupational Therapy [CONS] Routine Comment: Evaluate, develop and implement POC Reason for Consult: eval Does patient have active BEDREST order?: No Is patient medically & hemodynamically stable?: Yes Consult to Physical Therapy [CONS] Routine Comment: Evaluate, develop and implement POC Reason for Consult: eval Does patient have active BEDREST order?: No Is patient medically & hemodynamically stable?: Yes Discharging clinician: Aiden Cooper Anticipated date of discharge: 04/21/18 - Constitutional Vitals: Temp Pulse Resp BP Pulse Ox 97.6 F 87 18 142/89 92 04/21/18 06:51 04/21/18 06:51 04/21/18 06:51 04/21/18 06:51 01/15/19 06:51 General appearance: Present: A&O X 3, pleasant, no acute distress, answers questions appropriately - Head Head exam: Present: atraumatic, normocephalic - Eye Eye exam: Present: PERRL, conjuntiva pink, sclera anicteric Pupils: Present: PERRL - Neck Neck exam general surgery: Present: supple, trachea midline. Absent: lymphadenopathy - Respiratory Respiratory exam: Present: CTAB. Absent: accessory muscle use, rales, rhonchi, wheezes - Cardiovascular Cardiovascular exam: Present: RRR, +S1, +S2. Absent: diastolic murmur, gallop, rubs, systolic murmur - GI/Abdominal GI/Abdominal exam: Present: normal bowel sounds, soft, no peritoneal signs. Absent: distended, tenderness - Extremities Exam Extremities exam: Present: warm, radial pulses palpable and symmetrical. Absent: calf tenderness, cyanotic, pedal edema - Neurological Exam Neurological exam: Present: CN II-XII intact, oriented X3, no focal deficits. Absent: pronater drift, facial droop, speech deficit - Skin Skin exam: Present: dry, intact - Patient Status Disposition: Transfer Hospital Swing Bed Condition: Good Functional capacity at discharge: uses cane/walker Overall status at discharge: patient is progressing back to baseline - Discharge Instructions Follow Up With: NONE,PCP [Primary Care Provider] - Forms: ED Satisfaction Letter - Diet and Activity Activity: as per physical therapy Diet: advance to your usual diet
== END 2018-04-21 10:34 | disposition other institution (70) | DRG 191 ==
LOC: EMEROOGRE 08:17 → INPGRE 08:17
PROVIDERS: ADMIT Internal Medicine; ATTEND Internal Medicine

== ENCOUNTER 2018-04-21 10:04 | Inpatient (IN) ==
[2018-04-21] MEDS ORDERED: Albuterol 2.5 MG/3 ML NEBULIZER IH PRN (10:42)
[2018-04-21] MEDS ORDERED: *HR* Dextrose 50 % in Water (Syg) 50 ML SYRINGE IVP PRN (11:02)
[2018-04-21] MEDS ORDERED: D5% in Water 1,000 ML IVC PRN (11:02)
[2018-04-21] MEDS ORDERED: Dextrose Gel 15 GM/37.5 ML TUBE PO PRN ×2 (11:02)
--- NOTE | 2018-04-21 11:44 | Internal Med History&Physical ---
Addendum entered and electronically signed by Aiden Cooper MD 04/21/18 14:07: I have personally performed a face to face evaluation on this patient. I have r eviewed and agree with the care plan. History and Exam by me shows: Patient has no complaints. His breathing is diminished with therapy but otherwise seems to be improving. He denies cough or shortness of breath at rest. He has been moving his bowels adequately. Bladder is hesitant but otherwise okay. Discussed care with other providers and/or nursing. Patient has no complaint of chest discomfort, dyspnea, orthopnea, palpitations, nausea or vomiting, constipation or diarrhea, other changes in bowel habits, difficulty with urination, rash or itching, or other new complaints, except as mentioned above. Review of systems is otherwise negative. Examination: (Except as mentioned above): General: In no apparent distress. Alert and oriented 3. Nondiaphoretic. Head: Atraumatic and normocephalic. Respiratory: No use of accessory muscles. Lungs are clear throughout except rare, diffuse, rales. Normal airflow. Cardiovascular: Regular rate and rhythm without murmur appreciated. Abdomen: Bowel sounds are normal. No hepatosplenomegaly mass or tenderness appreciated. Obese and therefore difficult to palpate deeply. Extremities: No cyanosis clubbing or edema. No edema is noted, at all. Skin: Warm and non-diaphoretic with no new lesions noted. Original Note: Date of Encounter: 04/21/18 Time of Encounter: 11:34 Assessment and Plan (1) General weakness Current visit: Yes Status: Acute PT and OT to eval and treat. Will follow progress. (2) Diabetes type 2, controlled Current visit: Yes Status: Chronic Continue sliding scale insulin and Levemir. Monitor fingerstick blood sugars. Will adjust medicines as necessary. 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 Denies chest pain. Continue current medications. Qualifiers: Coronary Disease-Associated Artery/Lesion type: [place] artery [place] vs. transplanted heart: unspecified whether [place] or transplanted heart Associated angina: without angina Qualified Code(s): I25.10 - Atherosclerotic heart disease of [place] coronary artery without angina pectoris (4) COPD exacerbation Current visit: Yes Status: Chronic Continue Levaquin and prednisone as ordered. Improving. Continue O2 per nasal cannula. Internal Medicine - H&P: HPI Admitted From: Intrahospital Transfer Plans for Post Hospital Care: Home History of present illness: Mr. Feliz is a 72 year old male admitted to rehab swing bed for deconditioning after COPD exacerbation. Plan to work with PT and OT to gain strength to discharge to home with daughter. Patient on Levaquin and PO prednisone. Was changed to prednisone 20 mg PO yesterday. Glucose has been elevated. Currently on sliding scale and Levemir. Patient denies any complaints at this time. Denies fever, chills, nausea vomiting or diarrhea. Denies shortness of breath or chest pain. Does get short of breath when ambulating with Walker with therapy. Maintaining stats at 4 L on 88% with exertion. Recovers to 95% quickly. Does wear oxygen at home. Past Med Surg Social Fam HX - Past Medical History Medical history: aortic aneurysm, arthritis, atrial fibrillation, COPD, coronary artery disease, diabetes, GERD, hyperlipidemia, hypertension, myocardial infarction Additional medical history: unsure if has aneurysm-they checked it and said it wasn't bad enough to do anything with yet. left pedals pulses weak Psychiatric history: no psych history - Past Surgical History Surgical History: angioplasty/stent, appendectomy, cataract, herniorrhaphy Additional surgical history: hernia repair x 2 - Social History Smoking Status: Former smoker Smokeless Tobacco Status: No Alcohol use: rarely Drug use: none - Family History Father Adopted: No Family Member Ethnicity: Non- Living Status: Hx Family Cardiac Disorders: Yes Hx Family Respiratory Disorders: No Hx Family Cancer: No Hx Family GI Disorders: No Hx Family Endocrine Disorder: Yes Hx Family Neuromuscular Disorders: No Hx Family Neurologic Disorders: No Hx Family HEENT Disorders: No Hx Family Autoimmune Disorders: No Mother Family Member Ethnicity: Non- Living Status: Hx Family Cardiac Disorders: Yes (father and brother) Hx Family Respiratory Disorders: Yes (mother , brother) Hx Family Cancer: Yes (mother,brother,sister) Hx Family GI Disorders: No Hx Family Endocrine Disorder: Yes (father) Hx Family Neuromuscular Disorders: No Hx Family Neurologic Disorders: No Hx Family HEENT Disorders: No Hx Family Autoimmune Disorders: No Brother Living Status: Hx Family Cardiac Disorders: Yes Internal Medicine - H&P: Meds Allopurinol [Zyloprim] 100 mg PO BID 01/28/15 [History] Amlodipine [Norvasc] 5 mg PO DAILY 01/28/15 [History] CloNIDine HCl 0.1 mg PO DAILY 01/28/15 [History] Metformin [Glucophage] 500 mg PO BID 01/28/15 [History] Metoprolol [Lopressor] 1 tab PO DAILY 01/28/15 [History] Omeprazole [PriLOSEC] 20 mg PO BID 01/28/15 [History] Albuterol Neb [Proventil Neb] 2.5 mg IH PRN PRN 04/27/15 [History] Aspirin [Adult Low Dose Aspirin EC] 1 tab PO DAILY 04/27/15 [History] Atorvastatin [Lipitor] 40 mg PO HS 10/14/15 [History] Chlorthalidone 25 mg PO DAILY 10/14/15 [History] Insulin DETEMIR [Levemir] 30 unit SQ HS 10/14/15 [History] rOPINIRole [Requip] 1 mg PO HS 10/14/15 [History] Linagliptin [Tradjenta] 5 mg PO DAILY 08/13/16 [History] Rivaroxaban [Xarelto] 10 mg PO DAILY 08/13/16 [History] Salmeterol Xinafoate [Serevent Diskus] 50 mcg IH BID 08/13/16 [History] Lisinopril [Zestril] 5 mg PO DAILY 02/14/18 [History] Ferrous Sulfate [Iron] 325 mg PO DAILY 04/09/18 [History] Loratadine [Allergy Relief] 10 mg PO DAILY 04/09/18 [History] Sotalol [Betapace] 80 mg PO Q12HR 04/09/18 [History] Allergy/AdvReac Type Severity Reaction Status Date / Time azithromycin Allergy Hives Verified 05/23/15 20:02 All Systems PM: A 10-system review of systems was performed and is negative for pertinent findings except as documented above in the HPI. - Constitutional Constitutional: no chills, no fever(s), no night sweats - EENT Eyes: no change in vision, no discharge, no pain, no photophobia Ears: no ear discharge, no ear pain, no tinnitus Nose, mouth and throat: no dysphagia, no nasal discharge, no neck pain, no sore throat - Cardiovascular Cardiovascular ROS IM: no chest pain, no diaphoresis, no dyspnea, no lightheadedness, no palpitations, no syncope - Respiratory Respiratory: no cough, no dyspnea, no wheezing, no excessive phlegm production - Gastrointestinal Gastrointestinal: no abdominal pain, no diarrhea, no hematemesis, no hematochezia, no melena, no nausea, no vomiting - Musculoskeletal Musculoskeletal ROS IM: no numbness, no tingling - Integumentary Integumentary IM: no rash, no unusual bruising - Neurological Neurological ROS: no confusion, no convulsions, no focal weakness, no numbness, no tingling, no tremor(s) - Hematologic/Lymphatic Hematologic/Lymphatic: no easy bruising - Head Head exam: Present: atraumatic, normocephalic - Eye Eye exam: Present: PERRL, conjuntiva pink, sclera anicteric Pupils: Present: PERRL - Neck Neck exam general surgery: Present: supple, trachea midline. Absent: lymphadenopathy - Respiratory Respiratory exam: Present: CTAB. Absent: accessory muscle use, rales, rhonchi, wheezes - Cardiovascular Cardiovascular exam: Present: RRR, +S1, +S2. Absent: diastolic murmur, gallop, rubs, systolic murmur - GI/Abdominal GI/Abdominal exam: Present: normal bowel sounds, soft, no peritoneal signs. Absent: distended, tenderness - Extremities Exam Extremities exam: Present: warm, radial pulses palpable and symmetrical. Absent: calf tenderness, cyanotic, pedal edema - Neurological Exam Neurological exam: Present: CN II-XII intact, oriented X3, no focal deficits. Absent: pronater drift, facial droop, speech deficit - Skin Skin exam: Present: dry, intact
[2018-04-21] MEDS: Insulin LISPRO 300 UNITS/3 ML VIAL SQ SCH ×3 (12:17→20:03)
[2018-04-21] MEDS: Ipratropium/Albuterol Neb 3 ML IH SCH ×2 (16:05→21:06)
[2018-04-21] MEDS: *HR* Metformin 500 MG TABLET PO SCH (16:50)
[2018-04-21] MEDS: rOPINIRole 1 MG TABLET PO SCH (20:03)
[2018-04-21] MEDS: Insulin DETEMIR 100 UNIT/ML X5UNITS SQ SCH (20:04)
[2018-04-21] MEDS ORDERED: NON-FORMULARY MEDICATION 1 EACH EACH (Salmeterol Xinafoate [Serevent Diskus] 50 MCG) IH SCH (21:00)
[2018-04-21] MEDS: Acetaminophen 325 MG TABLET PO PRN (21:31)
[2018-04-22] MEDS: Ipratropium/Albuterol Neb 3 ML IH SCH ×4 (03:14→21:30)
[2018-04-22] MEDS: Insulin LISPRO 300 UNITS/3 ML VIAL SQ SCH ×4 (08:13→21:31)
[2018-04-22] MEDS: Aspirin Enteric Coated 81 MG Tablet PO SCH (08:14)
[2018-04-22] MEDS: amLODIPine 5 MG TABLET PO SCH (08:14)
[2018-04-22] MEDS: cloNIDine HCl 0.1 MG TABLET PO SCH (08:14)
[2018-04-22] MEDS: *HR* Rivaroxaban 10 MG TABLET PO SCH (08:15)
[2018-04-22] MEDS: *HR* Metformin 500 MG TABLET PO SCH ×2 (08:15→16:36)
[2018-04-22] MEDS: Loratadine 10 MG TABLET PO SCH (08:15)
[2018-04-22] MEDS: predniSONE 20 MG TABLET PO SCH (08:15)
--- NOTE | 2018-04-22 12:00 | Internal Med Progress Note ---
Addendum entered and electronically signed by Aiden Cooper MD 04/22/18 12:46: I have personally performed a face to face evaluation on this patient. I have r eviewed and agree with the care plan. History and Exam by me shows: Patient has no stated problems. He is feeling well and is pleased with his progress in therapy. He asks about his discharge day but I told him we would have our team meeting today. Discussed care with other providers and/or nursing. Patient has no complaint of chest discomfort, dyspnea, orthopnea, palpitations, nausea or vomiting, constipation or diarrhea, other changes in bowel habits, difficulty with urination, rash or itching, or other new complaints, except as mentioned above. Review of systems is otherwise negative. Examination: (Except as mentioned above): General: In no apparent distress. Alert and oriented 3. Nondiaphoretic. Head: Atraumatic and normocephalic. Respiratory: No use of accessory muscles. Lungs are clear throughout. For patient, lungs are remarkably clear. Normal airflow. Cardiovascular: Regular rate and rhythm without murmur appreciated. Abdomen: Bowel sounds are normal. No hepatosplenomegaly mass or tenderness appreciated. Obese and therefore difficult to palpate deeply. Extremities: No cyanosis clubbing or edema. Skin: Warm and non-diaphoretic with no new lesions noted. Original Note: Date of Encounter: 04/22/18 Time of Encounter: 11:58 - Assessment and plan (1) COPD exacerbation Current Visit: Yes Status: Chronic Assessment and plan: No acute issues. Patient states that his respiratory status has improved over the last several days. Patient continues to have fine posterior bibasilar rales present. Respiratory effort appears relaxed and no noted productive cough. Patient has started physical therapy and states that therapy has been progressing well. We will continue on current medications and bronchodilators. (2) Diabetes type 2, controlled Current Visit: Yes Status: Chronic Assessment and plan: No acute issues this time. Patient continues to have slightly elevated glucose with most readings between 150 and 200. We will continue with current sliding scale coverage and evaluate needs for titration of current medication regimen. Qualifiers: Diabetes mellitus beauty shop manager insulin use: with beauty shop manager use Diabetes mellitus complication status: without complication Qualified Code(s): E11.9 - Type 2 diabetes mellitus without complications; Z79.4 - retirement (current) use of insulin (3) History of atrial fibrillation Current Visit: Yes Status: Chronic Assessment and plan: No acute issues. Patient's heart rate was auscultated and appeared regular during exam. Vital signs stable. Ventricular rate remains controlled less than 100 (4) CAD (coronary artery disease) Current Visit: Yes Status: Chronic Assessment and plan: No acute issues. Patient denies any chest discomfort or palpitations. We will continue on current medications. Qualifiers: Coronary Disease-Associated Artery/Lesion type: [place] artery [place] vs. transplanted heart: unspecified whether [place] or transplanted heart Asso ciated angina: without angina Qualified Code(s): I25.10 - Atherosclerotic heart disease of [place] coronary artery without angina pectoris - Time Spent With Patient less than 15 minutes - Subjective Interval history: Patient appears relaxed and currently denies any discomforts or shortness of breath. Denies any palpitations or productive cough. Patient states that he feels his breathing has improved today. Patient states that physical therapy has been progressing well. - Constitutional Vitals: Temp Pulse Resp BP Pulse Ox 97.5 F L 94 18 131/75 96 04/22/18 07:32 04/22/18 07:32 04/22/18 07:32 04/22/18 03:11 04/22/18 07:32 General appearance: Present: A&O X 3, pleasant - Head Head exam: Present: atraumatic, normocephalic - Eye Eye exam: Present: PERRL, conjuntiva pink, sclera anicteric Pupils: Present: PERRL - Neck Neck exam general surgery: Present: supple, trachea midline. Absent: lymphadenopathy - Respiratory Respiratory exam: Present: CTAB, rales. Absent: accessory muscle use, rhonchi, wheezes Additional comments: Lungs are clear throughout upper ling and noted fine posterior bibasilar rales. Respiratory effort appears relaxed. No productive cough noted. - Cardiovascular Cardiovascular exam: Present: RRR, +S1, +S2. Absent: diastolic murmur, gallop, rubs, systolic murmur - GI/Abdominal GI/Abdominal exam: Present: normal bowel sounds, soft, no peritoneal signs. Absent: distended, tenderness - Extremities Exam Extremities exam: Present: warm, radial pulses palpable and symmetrical. Absent: calf tenderness, cyanotic, pedal edema - Neurological Exam Neurological exam: Present: CN II-XII intact, oriented X3, no focal deficits. Absent: pronater drift, facial droop, speech deficit - Skin Skin exam: Present: dry, intact Consult Discharge Plan - Plan Referrals: NONE,PCP [Primary Care Provider] -
[2018-04-22] MEDS: Acetaminophen 325 MG TABLET PO PRN ×2 (16:35→21:29)
[2018-04-22] MEDS: rOPINIRole 1 MG TABLET PO SCH (21:30)
[2018-04-22] MEDS: Insulin DETEMIR 100 UNIT/ML X5UNITS SQ SCH (21:30)
[2018-04-23] MEDS: Ipratropium/Albuterol Neb 3 ML IH SCH ×4 (03:57→22:58)
[2018-04-23] MEDS: amLODIPine 5 MG TABLET PO SCH (07:50)
[2018-04-23] MEDS: Aspirin Enteric Coated 81 MG Tablet PO SCH (07:50)
[2018-04-23] MEDS: predniSONE 20 MG TABLET PO SCH (07:50)
[2018-04-23] MEDS: *HR* Metformin 500 MG TABLET PO SCH ×2 (07:50→16:57)
[2018-04-23] MEDS: cloNIDine HCl 0.1 MG TABLET PO SCH (07:50)
[2018-04-23] MEDS: *HR* Rivaroxaban 10 MG TABLET PO SCH (07:50)
[2018-04-23] MEDS: Loratadine 10 MG TABLET PO SCH (07:50)
[2018-04-23] MEDS: Insulin LISPRO 300 UNITS/3 ML VIAL SQ SCH ×4 (07:51→22:56)
--- NOTE | 2018-04-23 12:12 | Internal Med Progress Note ---
Date of Encounter: 04/23/18 Time of Encounter: 12:10 - Assessment and plan (1) COPD exacerbation Current Visit: Yes Status: Chronic Assessment and plan: No acute issues. Patient states that his respiratory status has improved over the last several days. Patient continues to have fine posterior bibasilar rales present. Respiratory effort appears relaxed and no noted productive cough. Patient has started physical therapy and states that therapy has been progressing well. We will continue on current medications and bronchodilators. (2) Diabetes type 2, controlled Current Visit: Yes Status: Chronic Assessment and plan: No acute issues this time. Patient continues to have slightly elevated glucose with most readings between 150 and 200. We will continue with current sliding scale coverage and evaluate needs for titration of current medication regimen. Qualifiers: Diabetes mellitus intermediate frame tender insulin use: with group home use Diabetes mellitus complication status: without complication Qualified Code(s): E11.9 - Type 2 diabetes mellitus without complications; Z79.4 - intermediate frame tender (current) use of insulin (3) History of atrial fibrillation Current Visit: Yes Status: Chronic Assessment and plan: No acute issues. Patient's heart rate was auscultated and appeared regular during exam. Vital signs stable. Ventricular rate remains controlled less than 100 (4) CAD (coronary artery disease) Current Visit: Yes Status: Chronic Assessment and plan: No acute issues. Patient denies any chest discomfort or palpitations. We will continue on current medications. Qualifiers: Coronary Disease-Associated Artery/Lesion type: [place] artery [place] vs. transplanted heart: unspecified whether [place] or transplanted heart Associated angina: without angina Qualified Code(s): I25.10 - Atherosclerotic heart disease of [place] coronary artery without angina pectoris - Time Spent With Patient less than 15 minutes - Subjective Interval history: Patient appears relaxed and currently denies any discomforts or shortness of breath. Denies any palpitations or productive cough. Patient states that he feels his breathing has improved today. Patient states that physical therapy has been progressing well. - Constitutional Vitals: Temp Pulse Resp BP Pulse Ox 98.1 F 102 20 141/73 90 04/23/18 07:00 04/23/18 07:00 04/23/18 10:24 04/23/18 07:00 04/23/18 10:24 General appearance: Present: A&O X 3, pleasant - Head Head exam: Present: atraumatic, normocephalic - Eye Eye exam: Present: PERRL, conjuntiva pink, sclera anicteric Pupils: Present: PERRL - Neck Neck exam general surgery: Present: supple, trachea midline. Absent: lymphadenopathy - Respiratory Respiratory exam: Present: CTAB, rales. Absent: accessory muscle use, rhonchi, wheezes Additional comments: Respiratory effort appears relaxed while at rest. Lungs are clear throughout upper ling, but continues to have fine basilar rales. Productive cough noted - Cardiovascular Cardiovascular exam: Present: irregular rhythm, RRR, +S1, +S2. Absent: diastolic murmur, gallop, rubs, systolic murmur - GI/Abdominal GI/Abdominal exam: Present: normal bowel sounds, soft, no peritoneal signs. Absent: distended, tenderness - Extremities Exam Extremities exam: Present: warm, radial pulses palpable and symmetrical. Absent: calf tenderness, cyanotic, pedal edema - Neurological Exam Neurological exam: Present: CN II-XII intact, oriented X3, no focal deficits. A bsent: pronater drift, facial droop, speech deficit - Skin Skin exam: Present: dry, intact Consult Discharge Plan - Plan Referrals: NONE,PCP [Primary Care Provider] -
[2018-04-23] MEDS: Insulin DETEMIR 100 UNIT/ML X5UNITS SQ SCH (22:57)
[2018-04-23] MEDS: rOPINIRole 1 MG TABLET PO SCH (22:57)
[2018-04-24] MEDS: Ipratropium/Albuterol Neb 3 ML IH SCH ×4 (05:09→21:32)
[2018-04-24] MEDS: Acetaminophen 325 MG TABLET PO PRN ×2 (05:35→21:30)
[2018-04-24] MEDS: Aspirin Enteric Coated 81 MG Tablet PO SCH (08:06)
[2018-04-24] MEDS: Loratadine 10 MG TABLET PO SCH (08:07)
[2018-04-24] MEDS: *HR* Metformin 500 MG TABLET PO SCH ×2 (08:07→16:57)
[2018-04-24] MEDS: *HR* Rivaroxaban 10 MG TABLET PO SCH (08:07)
[2018-04-24] MEDS: amLODIPine 5 MG TABLET PO SCH (08:07)
[2018-04-24] MEDS: Insulin LISPRO 300 UNITS/3 ML VIAL SQ SCH ×4 (08:07→21:32)
[2018-04-24] MEDS: cloNIDine HCl 0.1 MG TABLET PO SCH (08:07)
[2018-04-24] MEDS: predniSONE 20 MG TABLET PO SCH (08:07)
[2018-04-24 10:55] LABS: Hematocrit 41.1 % (37.5-50.1); Hemoglobin 13.6 g/dL (12.9-16.9); Mean Corpuscular HGB Conc 33.1 g/dL (31.6-35.5); Mean Corpuscular Hemoglobin 30.8 pg (28.0-33.3); Mean Platelet Volume 11.8 fL (9.4-12.4); Platelet Count 189 K/mcL (140-400); Red Blood Count 4.42 M/mcL (4.19-5.50); Red Cell Distribution Width 15.6 % (11.5-14.5)
[2018-04-24 13:18] LABS: Alanine Aminotransferase 17 Units/L (7-52); Albumin 3.4 g/dL (3.5-5.7); Albumin/Globulin Ratio 1.7 (1.1-2.2); Alkaline Phosphatase 77 Units/L (34-104); Aspartate Amino Transferase 12 Units/L (13-39); BUN/Creatinine Ratio 27 (6-26); Bilirubin,Total 0.7 mg/dL (0.3-1.0); Blood Urea Nitrogen 15 mg/dL (8-23); Calcium 8.8 mg/dL (8.6-10.3); Carbon Dioxide 29 mEq/L (23-29); Chloride 98 mEq/L (98-107); Glucose 173 mg/dL (70-105); Magnesium 1.2 mg/dL (1.6-2.6); Osmolality,Calculated 285 (280-300); Potassium 4.1 mEq/L (3.5-5.1); Sodium 135 mEq/L (136-145); Total Protein 5.4 g/dL (6.4-8.9); eGFR For Non-African Americans > 60 (> 60)
--- NOTE | 2018-04-24 14:50 | Internal Med Progress Note ---
Date of Encounter: 04/24/18 Time of Encounter: 14:49 - Assessment and plan (1) COPD exacerbation Current Visit: Yes Status: Chronic Assessment and plan: No acute issues. Patient states that his respiratory status has improved over the last several days. Patient continues to have fine posterior bibasilar rales present. Respiratory effort appears relaxed and no noted productive cough. Patient has started physical therapy and states that therapy has been progressing well. We will continue on current medications and bronchodilators. (2) Diabetes type 2, controlled Current Visit: Yes Status: Chronic Assessment and plan: No acute issues this time. Patient continues to have slightly elevated glucose with most readings between 150 and 200. We will continue with current sliding scale coverage and evaluate needs for titration of current medication regimen. Qualifiers: Diabetes mellitus oysterman insulin use: with custodial use Diabetes mellitus complication status: without complication Qualified Code(s): E11.9 - Type 2 diabetes mellitus without complications; Z79.4 - [facility] (current) use of insulin (3) History of atrial fibrillation Current Visit: Yes Status: Chronic Assessment and plan: No acute issues. Patient's heart rate was auscultated and appeared regular during exam. Vital signs stable. Ventricular rate remains controlled less than 100 (4) CAD (coronary artery disease) Current Visit: Yes Status: Chronic Assessment and plan: No acute issues. Patient denies any chest discomfort or palpitations. We will continue on current medications. Qualifiers: Coronary Disease-Associated Artery/Lesion type: [place] artery [place] vs. transplanted heart: unspecified whether [place] or transplanted heart Associated angina: without angina Qualified Code(s): I25.10 - Atherosclerotic heart disease of [place] coronary artery without angina pectoris - Time Spent With Patient less than 15 minutes - Subjective Interval history: Patient appears relaxed and currently denies any discomforts or shortness of breath. Denies any palpitations or productive cough. Patient states that he feels his breathing has improved today. Patient states that physical therapy has been progressing well. - Constitutional Vitals: Temp Pulse Resp BP Pulse Ox 97.6 F 102 16 93/71 93 04/24/18 06:58 04/24/18 06:58 04/24/18 06:58 04/24/18 06:58 04/24/18 06:58 General appearance: Present: A&O X 3, pleasant - Head Head exam: Present: atraumatic, normocephalic - Eye Eye exam: Present: PERRL, conjuntiva pink, sclera anicteric Pupils: Present: PERRL - Neck Neck exam general surgery: Present: supple, trachea midline. Absent: lymphadenopathy - Respiratory Respiratory exam: Present: CTAB. Absent: accessory muscle use, rales, rhonchi, wheezes Additional comments: Lungs are clear throughout upper ling but diminished bases. Respiratory effort appears relaxed while at rest. No productive cough. - Cardiovascular Cardiovascular exam: Present: RRR, +S1, +S2. Absent: diastolic murmur, gallop, rubs, systolic murmur - GI/Abdominal GI/Abdominal exam: Present: normal bowel sounds, soft, no peritoneal signs. Absent: distended, tenderness - Extremities Exam Extremities exam: Present: warm, radial pulses palpable and symmetrical. Absent: calf tenderness, cyanotic, pedal edema - Neurological Exam Neurological exam: Present: CN II-XII intact, oriented X3, no focal deficits. Absent: pronater drift, facial droop, speech deficit - Skin Skin exam: Present: dry, intact Internal Medicine: Result - Labs CBC & Chem 7: 04/24/18 10:50 04/24/18 10:50 Labs: Short CBC 04/24/18 Range/Units 10:50 WBC 17.4 H D (4.3-11.1) K/mcL Hgb 13.6 (12.9-16.9) g/dL Hct 41.1 (37.5-50.1) % Plt Count 189 (140-400) K/mcL BMP 04/24/18 10:50 Sodium 135 L Potassium 4.1 Chloride 98 Carbon Dioxide 29 BUN 15 Creatinine 0.56 L Glucose 173 H Calcium 8.8 Liver Function 04/24/18 Range/Units 10:50 Total Bilirubin 0.7 (0.3-1.0) mg/dL AST 12 L (13-39) Units/L ALT 17 (7-52) Units/L Alkaline Phosphatase 77 (34-104) Units/L Albumin 3.4 L (3.5-5.7) g/dL Consult Discharge Plan - Plan Referrals: NONE,PCP [Primary Care Provider] -
[2018-04-24] MEDS: rOPINIRole 1 MG TABLET PO SCH (21:31)
[2018-04-24] MEDS: Insulin DETEMIR 100 UNIT/ML X5UNITS SQ SCH (21:32)
[2018-04-25] MEDS: Acetaminophen 325 MG TABLET PO PRN ×2 (06:03→20:50)
[2018-04-25] MEDS: Ipratropium/Albuterol Neb 3 ML IH SCH ×4 (06:04→20:51)
[2018-04-25] MEDS: Insulin LISPRO 300 UNITS/3 ML VIAL SQ SCH ×4 (08:02→20:51)
[2018-04-25] MEDS: *HR* Metformin 500 MG TABLET PO SCH ×2 (08:04→16:39)
[2018-04-25] MEDS: predniSONE 20 MG TABLET PO SCH (08:04)
[2018-04-25] MEDS: Loratadine 10 MG TABLET PO SCH (08:04)
[2018-04-25] MEDS: Aspirin Enteric Coated 81 MG Tablet PO SCH (08:04)
[2018-04-25] MEDS: *HR* Rivaroxaban 10 MG TABLET PO SCH (08:04)
[2018-04-25] MEDS: amLODIPine 5 MG TABLET PO SCH (08:04)
[2018-04-25] MEDS: cloNIDine HCl 0.1 MG TABLET PO SCH (08:05)
[2018-04-25] MEDS: Insulin DETEMIR 100 UNIT/ML X5UNITS SQ SCH (20:51)
[2018-04-25] MEDS: rOPINIRole 1 MG TABLET PO SCH (20:51)
[2018-04-26] MEDS: Acetaminophen 325 MG TABLET PO PRN ×2 (05:31→16:43)
[2018-04-26] MEDS: Ipratropium/Albuterol Neb 3 ML IH SCH ×4 (05:33→21:00)
[2018-04-26] MEDS: Loratadine 10 MG TABLET PO SCH (08:05)
[2018-04-26] MEDS: amLODIPine 5 MG TABLET PO SCH (08:05)
[2018-04-26] MEDS: *HR* Rivaroxaban 10 MG TABLET PO SCH (08:05)
[2018-04-26] MEDS: *HR* Metformin 500 MG TABLET PO SCH ×2 (08:05→16:35)
[2018-04-26] MEDS: cloNIDine HCl 0.1 MG TABLET PO SCH (08:05)
[2018-04-26] MEDS: predniSONE 20 MG TABLET PO SCH (08:05)
[2018-04-26] MEDS: Insulin LISPRO 300 UNITS/3 ML VIAL SQ SCH ×4 (08:06→20:59)
[2018-04-26] MEDS: Aspirin Enteric Coated 81 MG Tablet PO SCH (08:06)
--- NOTE | 2018-04-26 19:18 | Internal Med Progress Note ---
Date of Encounter: 04/25/18 Time of Encounter: 14:45 - Subjective Interval history: - Assessment and plan (1) COPD exacerbation Current Visit: Yes Status: Chronic Assessment and plan: No acute issues. Patient states that his respiratory status has improved over the last several days. Patient continues to have fine posterior bibasilar rales present. Respiratory effort appears relaxed and no noted productive cough. Patient has started physical therapy and states that therapy has been progressing well. We will continue on current medications and bronchodilators. (2) Diabetes type 2, controlled Current Visit: Yes Status: Chronic Assessment and plan: No acute issues this time. Patient continues to have slightly elevated glucose with most readings between 150 and 200. We will continue with current sliding scale coverage and evaluate needs for titration of current medication regimen. Qualifiers: Diabetes mellitus long-term insulin use: with intermediate frame tender use Diabetes mellitus complication status: without complication Qualified Code(s): E11.9 - Type 2 diabetes mellitus without complications; Z79.4 - alf (current) use of insulin (3) History of atrial fibrillation Current Visit: Yes Status: Chronic Assessment and plan: No acute issues. Patient's heart rate was auscultated and appeared regular during exam. Vital signs stable. Ventricular rate remains controlled less than 100 (4) CAD (coronary artery disease) Current Visit: Yes Status: Chronic Assessment and plan: No acute issues. Patient denies any chest discomfort or palpitations. We will continue on current medications. Qualifiers: Coronary Disease-Associated Artery/Lesion type: [place] artery [place] vs. transplanted heart: unspecified whether [place] or transplanted heart Associated angina: without angina Qualified Code(s): I25.10 - Atherosclerotic heart disease of [place] coronary artery without angina pectoris - Time Spent With Patient less than 15 minutes - Subjective Interval history: Patient appears relaxed and currently denies any discomforts or shortness of breath. Denies any palpitations or productive cough. Patient states that he feels his breathing has improved today. Patient states that physical therapy has been progressing well. - Constitutional General appearance: Present: A&O X 3, pleasant - Head Head exam: Present: atraumatic, normocephalic - Eye Eye exam: Present: PERRL, conjuntiva pink, sclera anicteric Pupils: Present: PERRL - Neck Neck exam general surgery: Present: supple, trachea midline. Absent: lymphadenopathy - Respiratory Respiratory exam: Present: CTAB. Absent: accessory muscle use, rales, rhonchi, wheezes Additional comments: Lungs are clear throughout upper ling but diminished bases. Respiratory effort appears relaxed while at rest. No productive cough. - Cardiovascular Cardiovascular exam: Present: RRR, +S1, +S2. Absent: diastolic murmur, gallop, rubs, systolic murmur - GI/Abdominal GI/Abdominal exam: Present: normal bowel sounds, soft, no peritoneal signs. Absent: distended, tenderness - Extremities Exam Extremities exam: Present: warm, radial pulses palpable and symmetrical. Absent: calf tenderness, cyanotic, pedal edema - Neurological Exam Neurological exam: Present: CN II-XII intact, oriented X3, no focal deficits. Absent: pronater drift, facial droop, speech deficit - Skin Skin exam: Present: dry, intact - Constitutional Vitals: Temp Pulse Resp BP Pulse Ox 97.4 F L 98 16 134/80 92 04/26/18 19:04 04/26/18 19:04 04/26/18 19:04 04/26/18 19:04 04/26/18 19:04 General appearance: Present: A&O X 3, pleasant Internal Medicine: Result - Labs CBC & Chem 7: 04/24/18 10:50 04/24/18 10:50 Consult Discharge Plan - Plan Referrals: NONE,PCP [Primary Care Provider] -
--- NOTE | 2018-04-26 19:19 | Internal Med Progress Note ---
Date of Encounter: 04/26/18 Time of Encounter: 13:23 - Subjective Interval history: - Assessment and plan (1) COPD exacerbation Current Visit: Yes Status: Chronic Assessment and plan: No acute issues. Patient states that his respiratory status has improved over the last several days. Patient continues to have fine posterior bibasilar rales present. Respiratory effort appears relaxed and no noted productive cough. Patient has started physical therapy and states that therapy has been progressing well. We will continue on current medications and bronchodilators. (2) Diabetes type 2, controlled Current Visit: Yes Status: Chronic Assessment and plan: No acute issues this time. Patient continues to have slightly elevated glucose with most readings between 150 and 200. We will continue with current sliding scale coverage and evaluate needs for titration of current medication regimen. 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 Patient's heart rate was auscultated and appeared regular during exam. Vital signs stable. Ventricular rate remains controlled less than 100 (4) CAD (coronary artery disease) Current Visit: Yes Status: Chronic Assessment and plan: No acute issues. Patient denies any chest discomfort or palpitations. We will continue on current medications. Qualifiers: Coronary Disease-Associated Artery/Lesion type: [place] artery [place] vs. transplanted heart: unspecified whether [place] or transplanted heart Associated angina: without angina Qualified Code(s): I25.10 - Atherosclerotic heart disease of [place] coronary artery without angina pectoris - Time Spent With Patient less than 15 minutes - Subjective Interval history: Patient appears relaxed and currently denies any discomforts or shortness of breath. Denies any palpitations or productive cough. Patient states that he feels his breathing has improved today. Patient states that physical therapy has been progressing well. - Constitutional General appearance: Present: A&O X 3, pleasant - Head Head exam: Present: atraumatic, normocephalic - Eye Eye exam: Present: PERRL, conjuntiva pink, sclera anicteric Pupils: Present: PERRL - Neck Neck exam general surgery: Present: supple, trachea midline. Absent: lymphadenopathy - Respiratory Respiratory exam: Present: CTAB. Absent: accessory muscle use, rales, rhonchi, wheezes Additional comments: Lungs are clear throughout upper ling but diminished bases. Respiratory effort appears relaxed while at rest. No productive cough. - Cardiovascular Cardiovascular exam: Present: RRR, +S1, +S2. Absent: diastolic murmur, gallop, rubs, systolic murmur - GI/Abdominal GI/Abdominal exam: Present: normal bowel sounds, soft, no peritoneal signs. Absent: distended, tenderness - Extremities Exam Extremities exam: Present: warm, radial pulses palpable and symmetrical. Absent: calf tenderness, cyanotic, pedal edema - Neurological Exam Neurological exam: Present: CN II-XII intact, oriented X3, no focal deficits. Absent: pronater drift, facial droop, speech deficit - Skin Skin exam: Present: dry, intact - Constitutional Vitals: Temp Pulse Resp BP Pulse Ox 97.4 F L 98 16 134/80 92 04/26/18 19:04 04/26/18 19:04 04/26/18 19:04 04/26/18 19:04 04/26/18 19:04 General appearance: Present: A&O X 3, pleasant Internal Medicine: Result - Labs CBC & Chem 7: 04/24/18 10:50 04/24/18 10:50 Consult Discharge Plan - Plan Referrals: NONE,PCP [Primary Care Provider] -
[2018-04-26] MEDS: rOPINIRole 1 MG TABLET PO SCH (20:59)
[2018-04-26] MEDS: Insulin DETEMIR 100 UNIT/ML X5UNITS SQ SCH (20:59)
[2018-04-27] MEDS: Ipratropium/Albuterol Neb 3 ML IH SCH ×2 (04:19→10:05)
[2018-04-27] MEDS: Acetaminophen 325 MG TABLET PO PRN (04:24)
[2018-04-27 05:30] LABS: Basophils % 0.3 %; Eosinophils # 0.3 K/mcL (0.0-0.6); Eosinophils % 2.8 %; Hematocrit 40.1 % (37.5-50.1); Hemoglobin 13.3 g/dL (12.9-16.9); Immature Granulocytes % 1.6 % (0-4); Lymphocytes # 2.3 K/mcL (0.6-4.6); Lymphocytes % 19.1 %; Mean Corpuscular HGB Conc 33.2 g/dL (31.6-35.5); Mean Corpuscular Hemoglobin 31.1 pg (28.0-33.3); Mean Corpuscular Volume 93.9 fL (83.0-100.0); Mean Platelet Volume 11.4 fL (9.4-12.4); Monocytes # 1.1 K/mcL (0.0-1.3); Monocytes % 9.4 %; Neutrophils # 7.9 K/mcL (1.6-8.9); Platelet Count 166 K/mcL (140-400); Red Blood Count 4.27 M/mcL (4.19-5.50); Red Cell Distribution Width 15.8 % (11.5-14.5); Segmented Neutrophils % 66.8 %
[2018-04-27 05:44] LABS: BUN/Creatinine Ratio 31 (6-26); Blood Urea Nitrogen 20 mg/dL (8-23); Calcium 8.5 mg/dL (8.6-10.3); Carbon Dioxide 29 mEq/L (23-29); Chloride 100 mEq/L (98-107); Glucose 232 mg/dL (70-105); Osmolality,Calculated 290 (280-300); Sodium 135 mEq/L (136-145); eGFR For Non-African Americans > 60 (> 60)
[2018-04-27] MEDS: *HR* Metformin 500 MG TABLET PO SCH (07:49)
[2018-04-27] MEDS: predniSONE 20 MG TABLET PO SCH (07:49)
[2018-04-27] MEDS: Aspirin Enteric Coated 81 MG Tablet PO SCH (07:49)
[2018-04-27] MEDS: Loratadine 10 MG TABLET PO SCH (07:49)
[2018-04-27] MEDS: cloNIDine HCl 0.1 MG TABLET PO SCH (07:49)
[2018-04-27] MEDS: *HR* Rivaroxaban 10 MG TABLET PO SCH (07:49)
[2018-04-27] MEDS: amLODIPine 5 MG TABLET PO SCH (07:49)
[2018-04-27] MEDS: Insulin LISPRO 300 UNITS/3 ML VIAL SQ SCH ×2 (07:50→12:21)
[2018-04-27 08:00] VITALS: BP 139/85
--- NOTE | 2018-04-27 11:24 | Discharge Summary ---
Addendum entered and electronically signed by Aiden Cooper MD 04/27/18 13:33: I have personally performed a face to face evaluation on this patient. I have r eviewed and agree with the care plan. History and Exam by me shows: Patient is feeling well and is pleased to be going home. He has no acute issues and states that his bowels have not been moving for several days. We recommended the use of MiraLAX, at least to have a bowel movement every other day. Discussed care with other providers and/or nursing. Patient has no complaint of chest discomfort, dyspnea, orthopnea, palpitations, nausea or vomiting, constipation or diarrhea, other changes in bowel habits, difficulty with urination, rash or itching, or other new complaints, except as m entioned above. Review of systems is otherwise negative. Examination: (Except as mentioned above): General: In no apparent distress. Alert and oriented 3. Nondiaphoretic. He is on oxygen at 2 L by nasal cannula. Head: Atraumatic and normocephalic. Respiratory: No use of accessory muscles. Lungs are clear throughout. Normal airflow. Cardiovascular: Regular rate and rhythm without murmur appreciated. Abdomen: Bowel sounds are normal. No hepatosplenomegaly mass or tenderness appreciated. Obese and therefore difficult to palpate deeply. Extremities: No cyanosis clubbing or edema. Skin: Warm and non-diaphoretic with no new lesions noted. I told the patient and [id number] that he should be on prednisone 10 mg daily for at least a week or until seen by his family provider. Workup to prescribe him 2 weeks of prednisone and defer to primary care provider about whether or not this can be discontinued. Original Note: Date of Encounter: 04/27/18 Time of Encounter: 11:21 - Discharge Diagnosis (1) COPD exacerbation Priority: Primary Status: Chronic Comments: Admitted for exacerbation of COPD. Patient treated with bronchodialators, corticosteroids and Levaquin. Patients pulmonary status improved over the next several days. Participated in PT/OT and progressed well. Continues to become winded with minimal exertion, but states that his status has improved. Will DC to home with current home meds. Will keep on Predinisone 10mg daily until seen by PCP. Patient to continue PT via Home Health with Nx and PT/OT. Patient recommended to f/u with PCP in one week (2) Diabetes type 2, controlled Priority: Secondary Status: Chronic Comments: Glucose was well controlled during his stay at facility. Patient to continue current meds and f/u with PCP in one week. Qualifiers: Diabetes mellitus termite renewal inspector insulin use: with termite renewal inspector use Diabetes mellitus complication status: without complication Qualified Code(s): E11.9 - Type 2 diabetes mellitus without complications; Z79.4 - snf (current) use of insulin (3) History of atrial fibrillation Priority: Secondary Status: Chronic Comments: HR remains irregular, but controlled rate <100. Will continue current meds and f/u with PCP. (4) CAD (coronary artery disease) Priority: Secondary Status: Chronic Comments: No acute issues during stay at facility. No c/o chest discomforts or palpations. Continue on current meds and f/u with PCP Qualifiers: Coronary Disease-Associated Artery/Lesion type: [place] artery [place] vs. transplanted heart: unspecified whether [place] or transplanted heart Associated angina: without angina Qualified Code(s): I25.10 - Atherosclerotic heart disease of [place] coronary artery without angina pectoris Hospital course: Mr. Feliz is a 72 year old male, who was admitted for exacerbation of COPD and weakness. Patient was treated with bronchodialators, Levaquin and c orticosteroids. Over the next several days, he states that his pulmonary status has improved and currently denies any dyspnea or productive cough. Patient participated in PT/OT and progressed well. Currently denies any discomforts or palpitations. Afib with controlled rate of <100. Afebrile during stay. Patient to continue PT through Home Health services with home Nursing and PT. Patient recommended to f/u with PCP in one week. Will keep on prednisone 10mg daily until seen by PCP Discharge discussed with: patient Time spent discussing smoking cessation with patient: 3 to 10 minutes - Time Spent with Patient Total time spent providing and/or coordinating discharge services: Less than 30 minutes - Discharge Medications Prescriptions: predniSONE [PredniSONE] 10 mg PO DAILY 14 Days #14 tablet Home Medications: RX: Allopurinol [Zyloprim] 100 mg PO BID 01/28/15 [History] RX: Amlodipine [Norvasc] 5 mg PO DAILY 01/28/15 [History] RX: CloNIDine HCl 0.1 mg PO DAILY 01/28/15 [History] RX: Metformin [Glucophage] 500 mg PO BID 01/28/15 [History] RX: Metoprolol [Lopressor] 1 tab PO DAILY 01/28/15 [History] RX: Omeprazole [PriLOSEC] 20 mg PO BID 01/28/15 [History] RX: Albuterol Neb [Proventil Neb] 2.5 mg IH PRN PRN 04/27/15 [History] RX: Aspirin [Adult Low Dose Aspirin EC] 1 tab PO DAILY 04/27/15 [History] RX: Atorvastatin [Lipitor] 40 mg PO HS 10/14/15 [History] RX: Insulin DETEMIR [Levemir] 30 unit SQ HS 10/14/15 [History] RX: rOPINIRole [Requip] 1 mg PO HS 10/14/15 [History] RX: Linagliptin [Tradjenta] 5 mg PO DAILY 08/13/16 [History] RX: Rivaroxaban [Xarelto] 10 mg PO DAILY 08/13/16 [History] RX: Salmeterol Xinafoate [Serevent Diskus] 50 mcg IH BID 08/13/16 [History] RX: Lisinopril [Zestril] 5 mg PO DAILY 02/14/18 [History] Ferrous Sulfate [Iron] 325 mg PO DAILY 04/09/18 [History] Loratadine [Allergy Relief] 10 mg PO DAILY 04/09/18 [History] predniSONE [PredniSONE] 10 mg PO DAILY 14 Days #14 tablet 04/27/18 [Rx] Allergies/Adverse Reactions: Allergy/AdvReac Type Severity Reaction Status Date / Time azithromycin Allergy Hives Verified 05/23/15 20:02 Date of admission: 04/21/18 10:14 Primary care physician: PCP NONE Consults: 04/21/18 10:39 Consult to Occupational Therapy [CONS] Routine Comment: transfer to [facility] Reason for Consult: eval and tx Does patient have active BEDREST order?: No Is patient medically & hemodynamically stable?: Yes Consult to Physical Therapy [CONS] Routine Comment: to eval and tx Reason for Consult: eval Does patient have active BEDREST order?: No Is patient medically & hemodynamically stable?: Yes Consult to Recreational Therapy [CONS] Routine Comment: Consult to Swimming Pool Servicer [CONS] Routine Reason for SW Consult: d/c planning Discharging clinician: Aiden Cooper - Constitutional Vitals: Temp Pulse Resp BP Pulse Ox 97.7 F 86 15 139/85 94 04/27/18 07:59 04/27/18 07:59 04/27/18 07:59 04/27/18 07:59 04/27/18 07:59 General appearance: Present: A&O X 3, pleasant - Head Head exam: Present: atraumatic, normocephalic - Eye Eye exam: Present: PERRL, conjuntiva pink, sclera anicteric Pupils: Present: PERRL - Neck Neck exam general surgery: Present: supple, trachea midline. Absent: lymphadenopathy - Respiratory Respiratory exam: Present: CTAB, rales. Absent: accessory muscle use, rhonchi, wheezes Additional comments: CTA to upper ling and noted right basilar rales. - Cardiovascular Cardiovascular exam: Present: irregular rhythm, RRR, +S1, +S2. Absent: diastolic murmur, gallop, rubs, systolic murmur Additional comments: HR remains irreg with controlled rate <100 - GI/Abdominal GI/Abdominal exam: Present: normal bowel sounds, soft, no peritoneal signs. Absent: distended, tenderness - Extremities Exam Extremities exam: Present: warm, radial pulses palpable and symmetrical. Absent: calf tenderness, cyanotic, pedal edema - Neurological Exam Neurological exam: Present: CN II-XII intact, oriented X3, no focal deficits. Absent: pronater drift, facial droop, speech deficit - Skin Skin exam: Present: dry, intact - Patient Status Disposition: Home Health Service Condition: Fair Functional capacity at discharge: uses cane/walker Overall status at discharge: patient is progressing back to baseline - Discharge Instructions Instructions: Chronic Obstructive Pulmonary Disease (GEN), COPD Exacerbation, Pressure Dispatcher (GEN) Follow Up With: Clovis Manley HOME HEALTH BILLING SPECIALIST [Non-Partnered Physician] - 05/08/18 8:20 am (Please follow up with Clovis Manley on May 08, 2018 at 8:20 am) - Diet and Activity Activity: ambulate only with your walker, as per physical therapy Diet: diabetic diet, low fat, low cholesterol, low salt diet
--- NOTE | 2018-04-27 11:46 | Physician Discharge Referral ---
Addendum entered and electronically signed by Aiden Cooper MD 04/27/18 13:32: Original Note: Home Health/Hosp Referral Info Transfer to: Home Health Provider in Charge Post Discharge: PCP - Diagnosis (1) COPD exacerbation Priority: Primary Status: Chronic (2) Diabetes type 2, controlled Priority: Secondary Status: Chronic (3) History of atrial fibrillation Priority: Secondary Status: Chronic (4) CAD (coronary artery disease) Priority: Secondary Status: Chronic - Respiratory Orders Oxygen / L per min (2 lpm) Smoking Cessation: Smoking cessation has been advised. For more information, call the [place] Tobacco Quit Line at 5-702-WOYA-NOW. - Diet/Nutrition Diet/Nutrition Orders: No Added Salt (CALI), No Concentrated Sweets - Activity Activity Orders: Up ad manav, Walker - Services Needed Following services are medically necessary services: Nursing, Physical Therapy - Transfer Medications Home Medications: Allopurinol [Zyloprim] 100 mg PO BID 01/28/15 [History] Amlodipine [Norvasc] 5 mg PO DAILY 01/28/15 [History] CloNIDine HCl 0.1 mg PO DAILY 01/28/15 [History] Metformin [Glucophage] 500 mg PO BID 01/28/15 [History] Metoprolol [Lopressor] 1 tab PO DAILY 01/28/15 [History] Omeprazole [PriLOSEC] 20 mg PO BID 01/28/15 [History] Albuterol Neb [Proventil Neb] 2.5 mg IH PRN PRN 04/27/15 [History] Aspirin [Adult Low Dose Aspirin EC] 1 tab PO DAILY 04/27/15 [History] Atorvastatin [Lipitor] 40 mg PO HS 10/14/15 [History] Insulin DETEMIR [Levemir] 30 unit SQ HS 10/14/15 [History] rOPINIRole [Requip] 1 mg PO HS 10/14/15 [History] Linagliptin [Tradjenta] 5 mg PO DAILY 08/13/16 [History] Rivaroxaban [Xarelto] 10 mg PO DAILY 08/13/16 [History] Salmeterol Xinafoate [Serevent Diskus] 50 mcg IH BID 08/13/16 [History] Lisinopril [Zestril] 5 mg PO DAILY 02/14/18 [History] Ferrous Sulfate [Iron] 325 mg PO DAILY 04/09/18 [History] Loratadine [Allergy Relief] 10 mg PO DAILY 04/09/18 [History] Allergies/Adverse Reactions: Allergy/AdvReac Type Severity Reaction Status Date / Time azithromycin Allergy Hives Verified 05/23/15 20:02 Certification: Further, I certify that my clinical findings support that this patient is homebound (i.e. absences from home require considerable and taxing effort and are for medical reasons or voodoo services or infrequently or short duration when for other reasons) because: Homebound Reason: Leaving home requires considerable and taxing effort due to condition Attestation: My signature below is to certify that this patient is under my care and that I, or nurse practitioner, or a physician's sales and marketing assistant working with me, has a [id number] encounter with this patient.
== END 2018-04-27 13:28 | disposition home health service (06) | DRG 945 ==
LOC: INPGRE 10:14